=== PATIENT | female | born 1965 | race Caucasian/White ===

== ENCOUNTER 2023-12-20 08:56 | Inpatient (IN) | payer OTHER ==
[2023-12-20] MEDS ORDERED: ACETAMINOPHEN INJECTION 100 ML IVPB ONE (11:22)
[2023-12-20] MEDS ORDERED: ALBUTEROL SO4 2.5/IPRATROPIUM 0.5 INH SOL 3 ML VIAL.NEB. NEB ONE (11:22)
[2023-12-20 11:25] LABS: VENOUS O2 SATURATION 41.7 % (70-80); VENOUS PCO2 53.7 mmHg (38-52); VENOUS PH 7.405 (7.310-7.410)
[2023-12-20 11:26] LABS: BASO % 0.6 % (0-2.0); HEMATOCRIT 51.2 % (32.4-45.2); HEMOGLOBIN 17.9 GM/dL (10.7-15.3); LYMPH % 11.8 % (8-40); MCH 34.4 pg (25.7-33.7); MEAN CELL VOLUME 98.1 fl (80-96); MEAN PLT VOLUME 9.3 fl (7.5-11.1); MONO % 4.3 % (3.8-10.2); NEUT % 83.3 % (42.8-82.8); PLATELET COUNT 300 10^3/uL (134-434); RBC 5.22 M/mm3 (3.60-5.2); RDW 15.2 % (11.6-15.6); WHITE BLOOD COUNT 13.3 K/mm3 (4.0-10.0)
[2023-12-20 11:33] LABS: INR 0.98 (0.83-1.09); PROTHROMBIN TIME (PATIENT) 11.1 SEC (9.7-13.0)
[2023-12-20] MEDS: ALBUTEROL SO4 2.5/IPRATROPIUM 0.5 INH SOL 3 ML VIAL.NEB. NEB ONE (11:35)
[2023-12-20] MEDS: ACETAMINOPHEN 1000 MG/100 ML BAG IVPB ONE (11:35)
[2023-12-20] MEDS ORDERED: PIPERACILLIN/TAZOB 4.5 GM 4.5 GM/100 ML BAG IVPB ONE (11:53)
[2023-12-20] MEDS ORDERED: VANCOMYCIN 1 GRAM (PRE-DOCKED) 1,000 MG/250 ML BAG IVPB ONE (11:53)
[2023-12-20 11:56] LABS: POTASSIUM 4.3 mmol/L (3.5-5.1)
[2023-12-20 11:58] LABS: CALCIUM 9.2 mg/dL (8.5-10.1)
[2023-12-20 11:59] LABS: ALBUMIN 3.1 g/dl (3.4-5.0); BLOOD UREA NITROGEN 32.3 mg/dL (7-18)
[2023-12-20 12:04] LABS: BILIRUBIN,TOTAL 0.4 mg/dL (0.2-1)
[2023-12-20] MEDS: PIPERACILLIN/TAZOB 4.5 GM 4.5 GM in DEXTROSE 5%-WATER 100 ML IVPB ONE (12:20)
[2023-12-20 12:26] LABS: URINE APPEARANCE CLEAR; URINE BILIRUBIN NEGATIVE (NEGATIVE); URINE COLOR YELLOW; URINE GLUCOSE (UA) NEGATIVE (NEGATIVE); URINE KETONE NEGATIVE (NEGATIVE); URINE LEUK ESTERASE NEGATIVE (NEGATIVE); URINE NITRITE NEGATIVE (NEGATIVE); URINE PROTEIN NEGATIVE (NEGATIVE); URINE UROBILINOGEN 0.2 mg/dL (0.2-1.0)
[2023-12-20] MEDS ORDERED: AZITHROMYCIN IVPB 500 MG/250 ML BAG IVPB ONE (12:39)
[2023-12-20] MEDS ORDERED: LACTATED RINGERS SOLUTION 1,000 ML/1,000 ML INFUS.BAG IV SCH (12:45)
[2023-12-20] MEDS: AZITHROMYCIN IVPB 500 MG in DEXTROSE 5%-WATER - 250 ML IVPB ONE (12:49)
[2023-12-20] MEDS: VANCOMYCIN 1,000 MG in DEXTROSE 5%-WATER - 250 ML IVPB ONE (14:18)
[2023-12-20] MEDS: ALBUTEROL SO4 2.5/IPRATROPIUM 0.5 INH SOL 3 ML VIAL.NEB. NEB SCH (16:00)
[2023-12-20] MEDS: LACTATED RINGERS SOLUTION 1,000 ML/1,000 ML INFUS.BAG IV SCH ×2 (16:22→18:14)
[2023-12-20] MEDS: PIPERACILLIN/TAZOB 3.375 GM 3.375 GM in DEXTROSE 5%-WATER - 50 ML IVPB SCH (18:14)
[2023-12-20] MEDS: SENNOSIDES 8.8 MG/5 ML SYRUP GT SCH (22:00)
[2023-12-20] MEDS: levETIRAcetam 500 MG/5 ML ORAL SOLUTION (UNIT-DOSE CUPS) GT SCH (22:00)
[2023-12-20] MEDS: ATORVASTATIN CA 10 MG TABLET (FP) GT SCH (22:00)
[2023-12-20] MEDS: HEPARIN NA (PORCINE) 5,000 UNITS/ML 1ML VIAL SQ SCH (22:00)
[2023-12-20] MEDS: carBAMazepine 100 MG/5 ML UNIT-DOSE CUP GT SCH (23:00)
[2023-12-21] MEDS: PIPERACILLIN/TAZOB 3.375 GM 3.375 GM in DEXTROSE 5%-WATER - 50 ML IVPB SCH (02:37)
[2023-12-21] MEDS: LEVOTHYROXINE 75 MCG, LEVOTHYROXINE 100 MCG GT SCH (06:05)
[2023-12-21] MEDS ORDERED: PATIENT'S OWN MEDICATION (NON-FORMULARY) (Levothyroxine Sodium [Levothyroxine Sodium] 175 GT SCH (07:00)
[2023-12-21 09:17] LABS: BASO % 0.2 % (0-2.0); HEMOGLOBIN 14.2 GM/dL (10.7-15.3); LYMPH % 17.2 % (8-40); MCH 34.4 pg (25.7-33.7); MCHC 34.8 g/dl (32.0-36.0); MEAN CELL VOLUME 98.9 fl (80-96); MEAN PLT VOLUME 8.8 fl (7.5-11.1); MONO % 4.8 % (3.8-10.2); NEUT % 77.8 % (42.8-82.8); PLATELET COUNT 238 10^3/uL (134-434); RBC 4.14 M/mm3 (3.60-5.2); RDW 14.6 % (11.6-15.6); WHITE BLOOD COUNT 11.9 K/mm3 (4.0-10.0)
[2023-12-21 09:35] LABS: POTASSIUM 3.8 mmol/L (3.5-5.1)
[2023-12-21 09:42] LABS: BLOOD UREA NITROGEN 20.6 mg/dL (7-18); CALCIUM 8.2 mg/dL (8.5-10.1)
[2023-12-21 09:46] LABS: CREATININE 0.9 mg/dL (0.55-1.3)
[2023-12-21] MEDS: ASPIRIN 81 MG CHEWABLE TABLETS GT SCH (10:07)
[2023-12-21] MEDS: CALCIUM 500MG/VIT-D 200 UNITS COMBO TABLET (FP) PO SCH (10:07)
[2023-12-21] MEDS: SODIUM CHLORIDE NASAL SPRAY 44 ML BOTTLE NS PRN (10:08)
[2023-12-21] MEDS: ACETAMINOPHEN 650 MG/20.3 ML ORAL SOLUTION (CUPS) GT PRN (21:43)
[2023-12-22] MEDS: FUROSEMIDE 40 MG/4 ML INJECTABLE VIAL IVPUSH ONE (16:32)
[2023-12-23] MEDS: guaiFENesin/D-METHORPHAN HB 10 ML UNIT-DOSE CUPS PO ONE (05:33)
[2023-12-23 08:50] LABS: HEMATOCRIT 40.3 % (32.4-45.2); MCH 34.6 pg (25.7-33.7); MCHC 34.7 g/dl (32.0-36.0); MEAN CELL VOLUME 99.7 fl (80-96); MEAN PLT VOLUME 8.7 fl (7.5-11.1); PLATELET COUNT 260 10^3/uL (134-434); RBC 4.04 M/mm3 (3.60-5.2); RDW 14.6 % (11.6-15.6)
[2023-12-23 09:08] LABS: POTASSIUM 3.7 mmol/L (3.5-5.1)
[2023-12-23 09:10] LABS: CALCIUM 8.1 mg/dL (8.5-10.1)
[2023-12-23 09:15] LABS: BILIRUBIN,TOTAL 0.3 mg/dL (0.2-1); TOT PROT 6.2 g/dl (6.4-8.2)
[2023-12-23 09:28] LABS: ALBUMIN 2.2 g/dl (3.4-5.0)
[2023-12-23 11:12] LABS: N-TERMINAL BNP 274.1 pg/ml (5-125)
[2023-12-23] MEDS: FUROSEMIDE 40 MG/4 ML INJECTABLE VIAL IVPUSH SCH (14:26)
[2023-12-24 09:41] LABS: HEMATOCRIT 43.4 % (32.4-45.2); MCH 34.3 pg (25.7-33.7); MCHC 34.6 g/dl (32.0-36.0); MEAN CELL VOLUME 99.2 fl (80-96); MEAN PLT VOLUME 8.6 fl (7.5-11.1); PLATELET COUNT 265 10^3/uL (134-434); RBC 4.38 M/mm3 (3.60-5.2); RDW 14.7 % (11.6-15.6); WHITE BLOOD COUNT 5.3 K/mm3 (4.0-10.0)
[2023-12-24 09:56] LABS: POTASSIUM 3.7 mmol/L (3.5-5.1)
[2023-12-24 09:59] LABS: ALBUMIN 2.5 g/dl (3.4-5.0); BLOOD UREA NITROGEN 12.6 mg/dL (7-18); CALCIUM 8.7 mg/dL (8.5-10.1)
[2023-12-24 10:05] LABS: BILIRUBIN,TOTAL 0.4 mg/dL (0.2-1); TOT PROT 7.1 g/dl (6.4-8.2)
[2023-12-25 07:49] LABS: HEMATOCRIT 41.2 % (32.4-45.2); HEMOGLOBIN 14.3 GM/dL (10.7-15.3); MCH 34.6 pg (25.7-33.7); MCHC 34.7 g/dl (32.0-36.0); MEAN CELL VOLUME 99.8 fl (80-96); MEAN PLT VOLUME 8.3 fl (7.5-11.1); PLATELET COUNT 282 10^3/uL (134-434); RBC 4.12 M/mm3 (3.60-5.2); RDW 14.6 % (11.6-15.6); WHITE BLOOD COUNT 5.6 K/mm3 (4.0-10.0)
[2023-12-25] MEDS ORDERED: LOPERAMIDE HCL 2 MG CAPSULE PO PRN (08:19)
[2023-12-25 08:31] LABS: POTASSIUM 3.2 mmol/L (3.5-5.1)
[2023-12-25 08:33] LABS: MAGNESIUM 2.6 mg/dL (1.8-2.4)
[2023-12-25 08:35] LABS: CREATININE 1.1 mg/dL (0.55-1.3)
[2023-12-25 08:36] LABS: TOT PROT 6.8 g/dl (6.4-8.2)
[2023-12-25 08:38] LABS: ALBUMIN 2.3 g/dl (3.4-5.0); CALCIUM 8.4 mg/dL (8.5-10.1)
[2023-12-25 08:40] LABS: BLOOD UREA NITROGEN 15.2 mg/dL (7-18); PHOSPHOROUS 3.3 mg/dL (2.5-4.9)
[2023-12-25 08:41] LABS: BILIRUBIN,TOTAL 0.3 mg/dL (0.2-1)
[2023-12-25] MEDS: LOPERAMIDE HCL 1 MG/7.5 ML LIQUID GT PRN (10:16)
[2023-12-25] MEDS: POTASSIUM CHLORIDE ORAL LIQUID 20 MEQ/15 ML GT ONE (12:20)
[2023-12-25 16:04] LABS: MAGNESIUM 2.6 mg/dL (1.8-2.4)
[2023-12-25 16:08] LABS: PHOSPHOROUS 2.8 mg/dL (2.5-4.9)
[2023-12-25 16:37] VITALS: BMI 37.6
[2023-12-25] MEDS: BANATROL PLUS POWDER PACKET PEG SCH (22:20)
[2023-12-26 09:02] LABS: BASO % 0.9 % (0-2.0); HEMATOCRIT 40.5 % (32.4-45.2); HEMOGLOBIN 13.9 GM/dL (10.7-15.3); LYMPH % 31.4 % (8-40); MCH 34.2 pg (25.7-33.7); MCHC 34.2 g/dl (32.0-36.0); MEAN CELL VOLUME 99.9 fl (80-96); MEAN PLT VOLUME 8.5 fl (7.5-11.1); MONO % 8.3 % (3.8-10.2); NEUT % 59.4 % (42.8-82.8); PLATELET COUNT 278 10^3/uL (134-434); RBC 4.05 M/mm3 (3.60-5.2); RDW 14.7 % (11.6-15.6)
[2023-12-26 09:18] LABS: POTASSIUM 3.6 mmol/L (3.5-5.1)
[2023-12-26 09:23] LABS: ALBUMIN 2.2 g/dl (3.4-5.0); BLOOD UREA NITROGEN 17.7 mg/dL (7-18); CALCIUM 8.4 mg/dL (8.5-10.1)
[2023-12-26 09:27] LABS: BILIRUBIN,TOTAL 0.2 mg/dL (0.2-1); TOT PROT 6.6 g/dl (6.4-8.2)
[2023-12-26] MEDS: FUROSEMIDE 40 MG/5 ML UNIT-DOSE CUP GT SCH (09:53)
[2023-12-27] MEDS: FUROSEMIDE 40 MG/4 ML INJECTABLE VIAL IVPUSH SCH (06:20)
[2023-12-27 09:07] LABS: HEMATOCRIT 43.2 % (32.4-45.2); MCH 34.5 pg (25.7-33.7); MCHC 34.7 g/dl (32.0-36.0); MEAN CELL VOLUME 99.5 fl (80-96); MEAN PLT VOLUME 8.5 fl (7.5-11.1); PLATELET COUNT 335 10^3/uL (134-434); RBC 4.34 M/mm3 (3.60-5.2); RDW 14.7 % (11.6-15.6); WHITE BLOOD COUNT 7.9 K/mm3 (4.0-10.0)
[2023-12-27 09:24] LABS: POTASSIUM 3.7 mmol/L (3.5-5.1)
[2023-12-27 09:27] LABS: ALBUMIN 2.5 g/dl (3.4-5.0); BLOOD UREA NITROGEN 23.1 mg/dL (7-18); CALCIUM 8.7 mg/dL (8.5-10.1)
[2023-12-27 09:32] LABS: BILIRUBIN,TOTAL 0.6 mg/dL (0.2-1); TOT PROT 7.3 g/dl (6.4-8.2)
[2023-12-27] MEDS: METOLAZONE 2.5 MG TABLET (FP) PO ONE (16:27)
[2023-12-28 08:23] LABS: HEMATOCRIT 44.4 % (32.4-45.2); HEMOGLOBIN 15.5 GM/dL (10.7-15.3); MCH 34.6 pg (25.7-33.7); MCHC 34.8 g/dl (32.0-36.0); MEAN CELL VOLUME 99.5 fl (80-96); MEAN PLT VOLUME 8.8 fl (7.5-11.1); PLATELET COUNT 334 10^3/uL (134-434); RBC 4.46 M/mm3 (3.60-5.2); RDW 14.9 % (11.6-15.6); WHITE BLOOD COUNT 7.8 K/mm3 (4.0-10.0)
[2023-12-28 08:41] LABS: POTASSIUM 3.1 mmol/L (3.5-5.1)
[2023-12-28 09:01] LABS: CALCIUM 9.2 mg/dL (8.5-10.1)
[2023-12-28 09:02] LABS: BLOOD UREA NITROGEN 25.9 mg/dL (7-18); MAGNESIUM 2.5 mg/dL (1.8-2.4)
[2023-12-28 09:05] LABS: CREATININE 0.9 mg/dL (0.55-1.3); PHOSPHOROUS 3.7 mg/dL (2.5-4.9)
[2023-12-28] MEDS: POTASSIUM CHLORIDE ORAL LIQUID 20 MEQ/15 ML GT ONE ×2 (16:25→21:09)
[2023-12-28 18:36] LABS: POTASSIUM 3.6 mmol/L (3.5-5.1)
[2023-12-28 18:38] LABS: ALBUMIN 2.6 g/dl (3.4-5.0); BLOOD UREA NITROGEN 29.6 mg/dL (7-18); CALCIUM 9.3 mg/dL (8.5-10.1)
[2023-12-28 18:41] LABS: CREATININE 1.1 mg/dL (0.55-1.3)
[2023-12-28 18:43] LABS: BILIRUBIN,TOTAL 0.2 mg/dL (0.2-1); TOT PROT 7.4 g/dl (6.4-8.2)
[2023-12-28 21:42] LABS: POTASSIUM 3.5 mmol/L (3.5-5.1)
[2023-12-28 21:43] LABS: CALCIUM 9.4 mg/dL (8.5-10.1)
[2023-12-28 21:44] LABS: BLOOD UREA NITROGEN 31.7 mg/dL (7-18)
[2023-12-28 21:47] LABS: CREATININE 1.1 mg/dL (0.55-1.3)
[2023-12-28 22:18] LABS: MAGNESIUM 2.4 mg/dL (1.8-2.4)
[2023-12-29 09:33] LABS: HEMATOCRIT 46.4 % (32.4-45.2); HEMOGLOBIN 15.8 GM/dL (10.7-15.3); MCH 34.3 pg (25.7-33.7); MCHC 34.2 g/dl (32.0-36.0); MEAN CELL VOLUME 100.3 fl (80-96); MEAN PLT VOLUME 8.7 fl (7.5-11.1); PLATELET COUNT 340 10^3/uL (134-434); RBC 4.62 M/mm3 (3.60-5.2); RDW 14.9 % (11.6-15.6); WHITE BLOOD COUNT 7.5 K/mm3 (4.0-10.0)
[2023-12-29 09:50] LABS: POTASSIUM 3.5 mmol/L (3.5-5.1)
[2023-12-29 09:55] LABS: CALCIUM 9.5 mg/dL (8.5-10.1)
[2023-12-29 09:56] LABS: BLOOD UREA NITROGEN 36.9 mg/dL (7-18); MAGNESIUM 2.5 mg/dL (1.8-2.4); PHOSPHOROUS 3.2 mg/dL (2.5-4.9)
[2023-12-29 09:57] LABS: ALBUMIN 2.6 g/dl (3.4-5.0); BILIRUBIN,TOTAL 0.3 mg/dL (0.2-1); CREATININE 1.1 mg/dL (0.55-1.3)
[2023-12-29 09:59] LABS: TOT PROT 7.8 g/dl (6.4-8.2)
[2023-12-30] MEDS: SODIUM CHLORIDE 250 ML IV STA (09:20)
[2023-12-30 10:04] VITALS: TEMP 98.7
[2023-12-30 10:05] VITALS: BP 106/62; PULSE 70; RESP 20
== END 2023-12-30 09:57 | disposition home or self-care (01) | DRG 871 ==
LOC: JER 08:56 → JERBED 12:24 → J6S 17:26
PROVIDERS: ADMIT Internal Medicine; ATTEND Internal Medicine
DX: A41.9 Sepsis, unspecified organism (principal); I50.33 Acute on chronic diastolic (congestive) heart failure; J69.0 Pneumonitis due to inhalation of food and vomit; J96.01 Acute respiratory failure with hypoxia; N17.9 Acute kidney failure, unspecified; G40.909 Epilepsy, unspecified, not intractable, without status epilepticus; E03.9 Hypothyroidism, unspecified; E78.5 Hyperlipidemia, unspecified; Q90.9 Down syndrome, unspecified; Z93.1 Gastrostomy status; G30.9 Alzheimer's disease, unspecified; F02.80 Dementia in other diseases classified elsewhere, unspecified severity, without behavioral disturbance, psychotic disturbance, mood disturbance, and anxiety; R19.7 Diarrhea, unspecified
CPT/HCPCS: 0241U-QW; 36415; 71045-TC-FY; 74018-TC-FY; 80048; 80053; 81003; 82803; 82962; 83605; 83735; 83880; 84100; 84484; 85025; 85027; 85610; 86850; 86900; 86901; 87040; 87086; 87186; 87324; 87449; 87899; 93005; 93010; 93306-TC; 94640; 99285-25; J0131; J1644

== ENCOUNTER 2024-06-01 15:23 | Inpatient (IN) | payer OTHER ==
[2024-06-01] MEDS: SODIUM CHLORIDE 1,000 ML IV STA ×2 (16:16→21:43)
[2024-06-01] MEDS: ONDANSETRON 4 MG/2 ML VIAL IVPUSH ONE (16:30)
[2024-06-01] MEDS: PIPERACILLIN/TAZOB 4.5 GM 4.5 GM in DEXTROSE 5%-WATER 100 ML IVPB ONE (16:35)
[2024-06-01 16:41] LABS: BASO % 0.6 % (0-2.0); EOS % 0.1 % (0-4.5); HEMATOCRIT 43.7 % (32.4-45.2); MCH 35.3 pg (25.7-33.7); MCHC 34.2 g/dl (32.0-36.0); MEAN CELL VOLUME 103.2 fl (80-96); MEAN PLT VOLUME 9.1 fl (7.5-11.1); MONO % 4.3 % (3.8-10.2); PLATELET COUNT 264 10^3/uL (134-434); RBC 4.23 M/mm3 (3.60-5.2); RDW 13.9 % (11.6-15.6); WHITE BLOOD COUNT 10.4 K/mm3 (4.0-10.0)
[2024-06-01] MEDS ORDERED: ONDANSETRON 4 MG/2 ML VIAL ONE (16:48)
[2024-06-01] MEDS ORDERED: VANCOMYCIN 1 GRAM (PRE-DOCKED) 1,000 MG/250 ML BAG IVPB ONE (16:50)
[2024-06-01] MEDS ORDERED: PIPERACILLIN/TAZOB 4.5 GM 4.5 GM/100 ML BAG IVPB ONE (16:50)
[2024-06-01] MEDS ORDERED: FAMOTIDINE 20 MG/50 ML IVPB 20 MG/50 ML MG IVPB ONE (16:50)
[2024-06-01] MEDS: FAMOTIDINE 20 MG/50 ML IVPB 20 MG/50 ML MG IVPB ONE (17:05)
[2024-06-01 17:06] LABS: POTASSIUM 5.2 mmol/L (3.5-5.1)
[2024-06-01 17:07] LABS: CALCIUM 10.7 mg/dL (8.5-10.1)
[2024-06-01 17:08] LABS: ALBUMIN 2.9 g/dl (3.4-5.0); BLOOD UREA NITROGEN 38.2 mg/dL (7-18)
[2024-06-01 17:12] LABS: BILIRUBIN,TOTAL 0.5 mg/dL (0.2-1); CREATININE 1.5 mg/dL (0.55-1.3)
[2024-06-01 17:13] LABS: TOT PROT 8.5 g/dl (6.4-8.2)
[2024-06-01] MEDS: VANCOMYCIN 1,000 MG in DEXTROSE 5%-WATER - 250 ML IVPB ONE (17:40)
[2024-06-01] MEDS ORDERED: ACETAMINOPHEN INJECTION 100 ML ONE (18:08)
[2024-06-01] MEDS: ACETAMINOPHEN 1000 MG/100 ML BAG IVPB ONE (18:18)
[2024-06-01 19:11] LABS: POTASSIUM 3.3 mmol/L (3.5-5.1)
[2024-06-01 19:14] LABS: ALBUMIN 2.9 g/dl (3.4-5.0); BLOOD UREA NITROGEN 36.6 mg/dL (7-18); CALCIUM 10.1 mg/dL (8.5-10.1)
[2024-06-01 19:18] LABS: CREATININE 1.6 mg/dL (0.55-1.3)
[2024-06-01 19:19] LABS: BILIRUBIN,TOTAL 0.4 mg/dL (0.2-1); TOT PROT 7.7 g/dl (6.4-8.2)
[2024-06-01 21:05] LABS: EPI CELLS 6 /uL (0-25.1); HYALINE CASTS 2 /uL (0-3.1); URINE APPEARANCE CLOUDY; URINE BACTERIA 1128 /uL (0-1359); URINE BILIRUBIN NEGATIVE (NEGATIVE); URINE COLOR YELLOW; URINE GLUCOSE (UA) NEGATIVE (NEGATIVE); URINE KETONE NEGATIVE (NEGATIVE); URINE LEUK ESTERASE 2+ (NEGATIVE); URINE NITRITE NEGATIVE (NEGATIVE); URINE PROTEIN 2+ (NEGATIVE); URINE RBC 29 /uL (0-23.9); URINE UROBILINOGEN 0.2 mg/dL (0.2-1.0); URINE WBC 476 /uL (0-25.8)
[2024-06-01] MEDS: POTASSIUM CHLORIDE TABS 20 MEQ TABLET.ER (FP) PO ONE (23:30)
[2024-06-01 23:34] LABS: MAGNESIUM 2.1 mg/dL (1.8-2.4)
[2024-06-01] MEDS ORDERED: PATIENT'S OWN MEDICATION (NON-FORMULARY) (Ipratropium/Albuterol Sulfate 1 PUFF Inhaler) IH PRN (23:57)
[2024-06-01] MEDS ORDERED: SODIUM CHLORIDE NASAL SPRAY 44 ML BOTTLE NS PRN (23:57)
[2024-06-02] MEDS ORDERED: POTASSIUM CHLORIDE ORAL LIQUID 20 MEQ/15 ML ONE (00:56)
[2024-06-02] MEDS: POTASSIUM CHLORIDE ORAL LIQUID 20 MEQ/15 ML GT ONE (01:20)
[2024-06-02] MEDS: SODIUM CHLORIDE 1,000 ML IV STA ×3 (01:20→14:30)
[2024-06-02] MEDS: PIPERACILLIN/TAZOB 2.25 GM 2.25 GM/50 ML BAG IVPB SCH ×3 (02:35→21:53)
[2024-06-02] MEDS ORDERED: MAGNESIUM SULFATE IN WATER 2 GM/50 ML IVPB IVPB ONE (02:35)
[2024-06-02] MEDS ORDERED: PIPERACILLIN/TAZOB 2.25 GM 2.25 GM/50 ML BAG IVPB ONE (02:35)
[2024-06-02] MEDS: SODIUM CHLORIDE 1,000 ML IV SCH ×3 (02:51→18:49)
[2024-06-02] MEDS: MAGNESIUM 2GM/50ML STERILE WATER IVPB IVPB ONE (02:51)
[2024-06-02] MEDS ORDERED: VANCOMYCIN 1 GRAM (PRE-DOCKED) 1,000 MG/250 ML BAG IVPB SCH (06:00)
[2024-06-02] MEDS ORDERED: HEPARIN NA (PORCINE) 5,000 UNITS/ML 1ML VIAL SQ SCH ×2 (06:00→22:00)
[2024-06-02] MEDS: HEPARIN NA (PORCINE) 5,000 UNITS/ML 1ML VIAL SQ SCH ×2 (06:08→21:19)
[2024-06-02] MEDS: LEVOTHYROXINE 100 MCG, LEVOTHYROXINE 75 MCG GT SCH (06:20)
[2024-06-02] MEDS ORDERED: PATIENT'S OWN MEDICATION (NON-FORMULARY) (Levothyroxine Sodium [Levothyroxine Sodium] 175 GT SCH (07:00)
[2024-06-02] MEDS: VANCOMYCIN/WATER FOR INJ (PEG) 1,000 MG/200 ML BAG IVPB SCH (07:32)
[2024-06-02 08:14] LABS: HEMATOCRIT 37.5 % (32.4-45.2); HEMOGLOBIN 12.6 GM/dL (10.7-15.3); MCH 35.4 pg (25.7-33.7); MCHC 33.6 g/dl (32.0-36.0); MEAN CELL VOLUME 105.4 fl (80-96); MEAN PLT VOLUME 9.3 fl (7.5-11.1); PLATELET COUNT 203 10^3/uL (134-434); RBC 3.56 M/mm3 (3.60-5.2); RDW 13.8 % (11.6-15.6)
[2024-06-02 08:33] LABS: POTASSIUM 4.6 mmol/L (3.5-5.1)
[2024-06-02 08:37] LABS: ARTERIAL BLD GAS O2 SATURATION 96.8 % (95-98); ARTERIAL BLOOD GAS BASE EXCESS 3.4 mmol/L (-2-2); ARTERIAL BLOOD GAS PO2 91.6 mmHg (80-100); ARTERIAL BLOOD GAS pH 7.386 (7.350-7.450)
[2024-06-02 08:40] LABS: ALLENS TEST POSITIVE
[2024-06-02 08:45] LABS: ALBUMIN 2.4 g/dl (3.4-5.0); BLOOD UREA NITROGEN 29.4 mg/dL (7-18); CALCIUM 8.6 mg/dL (8.5-10.1); MAGNESIUM 2.7 mg/dL (1.8-2.4)
[2024-06-02] MEDS ORDERED: DEXTROSE 5%-LACTATED RINGERS 1,000 ML IV SCH ×2 (08:45→14:46)
[2024-06-02 08:48] LABS: BILIRUBIN,TOTAL 0.3 mg/dL (0.2-1); CREATININE 1.4 mg/dL (0.55-1.3); PHOSPHOROUS 3.2 mg/dL (2.5-4.9)
[2024-06-02 08:50] LABS: TOT PROT 6.6 g/dl (6.4-8.2)
[2024-06-02] MEDS: ALBUTEROL SO4 2.5/IPRATROPIUM 0.5 INH SOL 3 ML VIAL.NEB. NEB SCH ×3 (09:24→20:10)
[2024-06-02] MEDS: levETIRAcetam 500 MG/5 ML ORAL SOLUTION (UNIT-DOSE CUPS) GT SCH ×2 (09:56→21:18)
[2024-06-02] MEDS: CALCIUM 500MG/VIT-D 200 UNITS COMBO TABLET (FP) GT SCH ×2 (09:56→21:53)
[2024-06-02] MEDS: ASPIRIN 81 MG CHEWABLE TABLETS GT SCH (09:56)
[2024-06-02] MEDS: DEXTROSE 5%-LACTATED RINGERS 1,000 ML IV SCH (09:56)
[2024-06-02] MEDS ORDERED: ROSUVASTATIN CA 10 MG TABLET GT SCH (10:00)
[2024-06-02] MEDS ORDERED: MUPIROCIN 2% TOPICAL OINTMENT FOR DECOLONIZATION NS SCH ×2 (10:00→22:00)
[2024-06-02] MEDS ORDERED: carBAMazepine 200 MG TABLET GT SCH (10:00)
[2024-06-02] MEDS: HYDROCORTISONE SOD SUCCINATE 100 MG/2 ML VIAL IVPB SCH ×2 (11:03→21:18)
[2024-06-02] MEDS: MIDODRINE HCL 5 MG TABLET PO SCH (11:48)
[2024-06-02] MEDS: carBAMazepine 200 MG/10 ML UNIT-DOSE CUP GT SCH (13:16)
[2024-06-02] MEDS ORDERED: SODIUM CHLORIDE NASAL SPRAY 44 ML BOTTLE NS PRN ×2 (14:46→18:14)
[2024-06-02] MEDS ORDERED: MIDODRINE HCL 5 MG TABLET GT SCH (15:41)
[2024-06-02] MEDS ORDERED: HYDROCORTISONE SOD SUCCINATE 100 MG/2 ML VIAL IVPB SCH (16:00)
[2024-06-02] MEDS: ATROPINE SULFATE 1 MG/10 ML DISP.SYRIN IVPUSH ONE (17:25)
[2024-06-02 17:28] LABS: ARTERIAL BLD GAS O2 SATURATION 98.9 % (95-98); ARTERIAL BLOOD GAS BASE EXCESS 4.3 mmol/L (-2-2); ARTERIAL BLOOD GAS PO2 146.8 mmHg (80-100); ARTERIAL BLOOD GAS pH 7.432 (7.350-7.450)
[2024-06-02 17:58] LABS: EPI CELLS 2 /uL (0-25.1); HYALINE CASTS 0 /uL (0-3.1); PH,URINE 5.5 (5.0-8.0); URINE APPEARANCE TURBID; URINE BACTERIA 206 /uL (0-1359); URINE BILIRUBIN NEGATIVE (NEGATIVE); URINE COLOR YELLOW; URINE GLUCOSE (UA) NEGATIVE (NEGATIVE); URINE KETONE NEGATIVE (NEGATIVE); URINE LEUK ESTERASE 3+ (NEGATIVE); URINE NITRITE NEGATIVE (NEGATIVE); URINE PROTEIN 1+ (NEGATIVE); URINE RBC 40 /uL (0-23.9); URINE UROBILINOGEN 0.2 mg/dL (0.2-1.0); URINE WBC 2962 /uL (0-25.8)
[2024-06-02 18:24] LABS: BASO % 0.4 % (0-2.0); HEMATOCRIT 40.5 % (32.4-45.2); HEMOGLOBIN 13.7 GM/dL (10.7-15.3); LYMPH % 13.7 % (8-40); MCH 35.4 pg (25.7-33.7); MCHC 33.8 g/dl (32.0-36.0); MEAN CELL VOLUME 104.6 fl (80-96); MEAN PLT VOLUME 9.3 fl (7.5-11.1); MONO % 3.1 % (3.8-10.2); NEUT % 82.8 % (42.8-82.8); PLATELET COUNT 192 10^3/uL (134-434); RBC 3.87 M/mm3 (3.60-5.2); RDW 13.7 % (11.6-15.6); WHITE BLOOD COUNT 5.4 K/mm3 (4.0-10.0)
[2024-06-02] MEDS ORDERED: VANCOMYCIN/WATER FOR INJ (PEG) 1,000 MG/200 ML BAG IVPB SCH (19:00)
[2024-06-02 20:40] LABS: POTASSIUM 4.4 mmol/L (3.5-5.1)
[2024-06-02 20:42] LABS: CALCIUM 8.7 mg/dL (8.5-10.1)
[2024-06-02 20:44] LABS: ALBUMIN 2.5 g/dl (3.4-5.0); BLOOD UREA NITROGEN 23.9 mg/dL (7-18); MAGNESIUM 2.6 mg/dL (1.8-2.4)
[2024-06-02 20:46] LABS: CREATININE 1.3 mg/dL (0.55-1.3); PHOSPHOROUS 2.3 mg/dL (2.5-4.9)
[2024-06-02 20:47] LABS: BILIRUBIN,TOTAL 0.2 mg/dL (0.2-1)
[2024-06-02 20:48] LABS: TOT PROT 7.1 g/dl (6.4-8.2)
[2024-06-02] MEDS: CHLORHEXIDINE GLUCONATE 4% CLEANSER FOR DECOLONIZATION TP SCH (21:19)
[2024-06-02] MEDS: carBAMazepine 100 MG/5 ML UNIT-DOSE CUP GT SCH (21:52)
[2024-06-02] MEDS: MUPIROCIN 2% TOPICAL OINTMENT FOR DECOLONIZATION NS SCH (21:52)
[2024-06-02] MEDS: DOPAMINE 400 MG/D5W - 400,000 MCG/250 ML INFUS.BAG IVPB SCH (21:53)
[2024-06-02] MEDS ORDERED: CHLORHEXIDINE GLUCONATE 4% CLEANSER FOR DECOLONIZATION TP SCH ×2 (22:00)
[2024-06-02] MEDS ORDERED: levETIRAcetam 500 MG/5 ML ORAL SOLUTION (UNIT-DOSE CUPS) GT SCH (22:00)
[2024-06-02] MEDS ORDERED: carBAMazepine 200 MG/10 ML UNIT-DOSE CUP GT SCH (22:00)
[2024-06-02] MEDS ORDERED: CALCIUM 500MG/VIT-D 200 UNITS COMBO TABLET (FP) GT SCH (22:00)
[2024-06-03] MEDS ORDERED: PIPERACILLIN/TAZOB 2.25 GM 2.25 GM/50 ML BAG IVPB SCH ×3 (03:00)
[2024-06-03] MEDS ORDERED: VANCOMYCIN 1 GRAM (PRE-DOCKED) 1,000 MG/250 ML BAG IVPB SCH ×2 (06:00)
[2024-06-03] MEDS: LEVOTHYROXINE 100 MCG, LEVOTHYROXINE 75 MCG GT SCH (06:01)
[2024-06-03] MEDS ORDERED: LEVOTHYROXINE 100 MCG, LEVOTHYROXINE 75 MCG GT SCH (07:00)
[2024-06-03 07:42] LABS: BASO % 1.2 % (0-2.0); HEMATOCRIT 36.2 % (32.4-45.2); HEMOGLOBIN 12.2 GM/dL (10.7-15.3); MCH 35.5 pg (25.7-33.7); MCHC 33.7 g/dl (32.0-36.0); MEAN CELL VOLUME 105.3 fl (80-96); MEAN PLT VOLUME 9.3 fl (7.5-11.1); MONO % 7.7 % (3.8-10.2); NEUT % 64.1 % (42.8-82.8); PLATELET COUNT 186 10^3/uL (134-434); RBC 3.43 M/mm3 (3.60-5.2); RDW 13.4 % (11.6-15.6); WHITE BLOOD COUNT 4.8 K/mm3 (4.0-10.0)
[2024-06-03 07:57] LABS: POTASSIUM 3.8 mmol/L (3.5-5.1)
[2024-06-03 08:06] LABS: ALBUMIN 2.2 g/dl (3.4-5.0); BLOOD UREA NITROGEN 20.6 mg/dL (7-18); CALCIUM 7.9 mg/dL (8.5-10.1)
[2024-06-03 08:07] LABS: BILIRUBIN,TOTAL 0.2 mg/dL (0.2-1); MAGNESIUM 2.4 mg/dL (1.8-2.4); TOT PROT 6.2 g/dl (6.4-8.2)
[2024-06-03 08:09] LABS: CREATININE 1.2 mg/dL (0.55-1.3); PHOSPHOROUS 2.2 mg/dL (2.5-4.9)
[2024-06-03 08:38] LABS: ANISOCYTOSIS 1+; MACROCYTOSIS 2+
[2024-06-03] MEDS: ASPIRIN 81 MG CHEWABLE TABLETS GT SCH (09:58)
[2024-06-03] MEDS ORDERED: MIDODRINE HCL 5 MG TABLET GT SCH (10:00)
[2024-06-03] MEDS ORDERED: ASPIRIN 81 MG CHEWABLE TABLETS GT SCH (10:00)
[2024-06-03] MEDS: LACTATED RINGERS SOLUTION 1,000 ML/1,000 ML INFUS.BAG IV STA (14:53)
[2024-06-03] MEDS: LACTATED RINGERS SOLUTION 1000 ML INFUS.BAG IV ONE (14:53)
[2024-06-03] MEDS: MIDODRINE HCL 5 MG TABLET GT SCH ×2 (14:54→21:40)
[2024-06-03] MEDS: PIPERACILLIN/TAZOB 3.375 GM 50 ML IVPB SCH (17:37)
[2024-06-03] MEDS ORDERED: SODIUM CHLORIDE NASAL SPRAY 44 ML BOTTLE NS PRN (19:15)
[2024-06-03] MEDS: ALBUTEROL SO4 2.5/IPRATROPIUM 0.5 INH SOL 3 ML VIAL.NEB. NEB SCH (20:35)
[2024-06-03] MEDS: NAPH,MB-DB/K PH,MBDB POWDER PACKET PO ONE (21:38)
[2024-06-03] MEDS: MUPIROCIN 2% TOPICAL OINTMENT FOR DECOLONIZATION NS SCH (21:38)
[2024-06-03] MEDS: HYDROCORTISONE SOD SUCCINATE 100 MG/2 ML VIAL IVPB SCH (21:39)
[2024-06-03] MEDS: HEPARIN NA (PORCINE) 5,000 UNITS/ML 1ML VIAL SQ SCH (21:39)
[2024-06-03] MEDS: levETIRAcetam 500 MG/5 ML ORAL SOLUTION (UNIT-DOSE CUPS) GT SCH (21:39)
[2024-06-03] MEDS: CHLORHEXIDINE GLUCONATE 4% CLEANSER FOR DECOLONIZATION TP SCH (21:39)
[2024-06-03] MEDS: carBAMazepine 100 MG/5 ML UNIT-DOSE CUP GT SCH (21:40)
[2024-06-03] MEDS: CALCIUM 500MG/VIT-D 200 UNITS COMBO TABLET (FP) GT SCH (21:40)
[2024-06-04] MEDS: LEVOTHYROXINE 100 MCG, LEVOTHYROXINE 75 MCG GT SCH (06:07)
[2024-06-04 07:48] LABS: HEMATOCRIT 36.3 % (32.4-45.2); HEMOGLOBIN 12.3 GM/dL (10.7-15.3); MCH 35.4 pg (25.7-33.7); MCHC 33.8 g/dl (32.0-36.0); MEAN CELL VOLUME 104.7 fl (80-96); MEAN PLT VOLUME 9.6 fl (7.5-11.1); PLATELET COUNT 196 10^3/uL (134-434); RBC 3.47 M/mm3 (3.60-5.2); RDW 13.4 % (11.6-15.6); WHITE BLOOD COUNT 5.9 K/mm3 (4.0-10.0)
[2024-06-04 07:58] LABS: POTASSIUM 3.7 mmol/L (3.5-5.1)
[2024-06-04 08:06] LABS: ALBUMIN 2.2 g/dl (3.4-5.0); BLOOD UREA NITROGEN 20.4 mg/dL (7-18); CALCIUM 8.7 mg/dL (8.5-10.1); MAGNESIUM 2.7 mg/dL (1.8-2.4)
[2024-06-04 08:09] LABS: CREATININE 1.1 mg/dL (0.55-1.3)
[2024-06-04 08:10] LABS: PHOSPHOROUS 1.6 mg/dL (2.5-4.9)
[2024-06-04 08:11] LABS: BILIRUBIN,TOTAL 0.2 mg/dL (0.2-1); TOT PROT 6.8 g/dl (6.4-8.2)
[2024-06-04] MEDS: ASPIRIN 81 MG CHEWABLE TABLETS GT SCH (10:46)
[2024-06-04] MEDS: NAPH,MB-DB/K PH,MBDB POWDER PACKET PEG SCH (10:49)
[2024-06-04] MEDS: MEROPENEM-0.9% SODIUM CHLORIDE 1 GM/50 ML BAG IVPB SCH (17:28)
[2024-06-05 06:56] LABS: BASO % 0.8 % (0-2.0); HEMATOCRIT 37.4 % (32.4-45.2); HEMOGLOBIN 12.5 GM/dL (10.7-15.3); LYMPH % 36.4 % (8-40); MCH 34.8 pg (25.7-33.7); MCHC 33.5 g/dl (32.0-36.0); MEAN CELL VOLUME 103.8 fl (80-96); MEAN PLT VOLUME 9.8 fl (7.5-11.1); MONO % 8.2 % (3.8-10.2); NEUT % 54.6 % (42.8-82.8); PLATELET COUNT 203 10^3/uL (134-434); RBC 3.61 M/mm3 (3.60-5.2); RDW 13.3 % (11.6-15.6); WHITE BLOOD COUNT 4.9 K/mm3 (4.0-10.0)
[2024-06-05 07:15] LABS: POTASSIUM 3.7 mmol/L (3.5-5.1)
[2024-06-05 07:19] LABS: ALBUMIN 2.3 g/dl (3.4-5.0); CALCIUM 8.2 mg/dL (8.5-10.1); MAGNESIUM 2.5 mg/dL (1.8-2.4)
[2024-06-05 07:24] LABS: BILIRUBIN,TOTAL 0.2 mg/dL (0.2-1)
[2024-06-05 07:27] LABS: TOT PROT 6.4 g/dl (6.4-8.2)
[2024-06-05 07:28] LABS: BLOOD UREA NITROGEN 19.7 mg/dL (7-18)
[2024-06-05 08:36] VITALS: BMI 36.1
[2024-06-05] MEDS: SODIUM CHLORIDE 0.45% 1,000 ML IV SCH (09:58)
[2024-06-06 07:27] LABS: HEMATOCRIT 37.9 % (32.4-45.2); HEMOGLOBIN 12.5 GM/dL (10.7-15.3); MCH 34.5 pg (25.7-33.7); MCHC 33.1 g/dl (32.0-36.0); MEAN CELL VOLUME 104.1 fl (80-96); MEAN PLT VOLUME 9.9 fl (7.5-11.1); PLATELET COUNT 224 10^3/uL (134-434); RBC 3.64 M/mm3 (3.60-5.2); RDW 13.5 % (11.6-15.6); WHITE BLOOD COUNT 6.1 K/mm3 (4.0-10.0)
[2024-06-06 07:29] LABS: POTASSIUM 3.8 mmol/L (3.5-5.1)
[2024-06-06 07:31] LABS: BLOOD UREA NITROGEN 22.4 mg/dL (7-18); CALCIUM 8.3 mg/dL (8.5-10.1)
[2024-06-06 07:32] LABS: ALBUMIN 2.3 g/dl (3.4-5.0); MAGNESIUM 2.7 mg/dL (1.8-2.4)
[2024-06-06 07:35] LABS: PHOSPHOROUS 1.7 mg/dL (2.5-4.9)
[2024-06-06 07:36] LABS: BILIRUBIN,TOTAL 0.2 mg/dL (0.2-1); TOT PROT 6.4 g/dl (6.4-8.2)
[2024-06-06 10:20] LABS: ANISOCYTOSIS 0; MACROCYTOSIS 0
[2024-06-06] MEDS: POLYETHYLENE GLYCOL (HEALTHYLAX) 3350 17 GM PACKET GT SCH (11:43)
[2024-06-06] MEDS: ACETAMINOPHEN 1000 MG/100 ML BAG IVPB ONE (12:30)
[2024-06-06] MEDS: MIDODRINE HCL 5 MG TABLET GT SCH (15:00)
[2024-06-06] MEDS: POTASSIUM PHOSPHATE 30 MM in DEXTROSE 5%-WATER - 500 ML IVPB ONE (16:56)
[2024-06-06] MEDS: DEXTROSE 5%-WATER - 1,000 ML IV SCH (17:40)
[2024-06-06] MEDS: carBAMazepine 100 MG/5 ML UNIT-DOSE CUP GT SCH (21:52)
[2024-06-07 07:13] LABS: HEMATOCRIT 38.9 % (32.4-45.2); HEMOGLOBIN 12.8 GM/dL (10.7-15.3); MCH 34.6 pg (25.7-33.7); MCHC 32.9 g/dl (32.0-36.0); MEAN CELL VOLUME 105.1 fl (80-96); MEAN PLT VOLUME 9.1 fl (7.5-11.1); PLATELET COUNT 221 10^3/uL (134-434); RDW 13.5 % (11.6-15.6); WHITE BLOOD COUNT 8.5 K/mm3 (4.0-10.0)
[2024-06-07 08:26] LABS: POTASSIUM 3.6 mmol/L (3.5-5.1)
[2024-06-07 08:30] LABS: ALBUMIN 2.2 g/dl (3.4-5.0); BLOOD UREA NITROGEN 20.6 mg/dL (7-18); MAGNESIUM 2.5 mg/dL (1.8-2.4)
[2024-06-07 08:34] LABS: CREATININE 0.8 mg/dL (0.55-1.3); PHOSPHOROUS 1.7 mg/dL (2.5-4.9)
[2024-06-07 08:35] LABS: BILIRUBIN,TOTAL 0.2 mg/dL (0.2-1)
[2024-06-07 08:48] LABS: TOT PROT 5.8 g/dl (6.4-8.2)
[2024-06-07] MEDS: DEXTROSE 5%-WATER - 1,000 ML IV SCH (13:34)
[2024-06-07] MEDS: POTASSIUM PHOSPHATE 45 MM in DEXTROSE 5%-WATER - 500 ML IVPB ONE (16:27)
[2024-06-08 07:54] LABS: HEMATOCRIT 39.7 % (32.4-45.2); HEMOGLOBIN 13.1 GM/dL (10.7-15.3); MCH 34.8 pg (25.7-33.7); MCHC 33.1 g/dl (32.0-36.0); MEAN CELL VOLUME 105.1 fl (80-96); MEAN PLT VOLUME 9.4 fl (7.5-11.1); PLATELET COUNT 234 10^3/uL (134-434); RBC 3.77 M/mm3 (3.60-5.2); RDW 13.6 % (11.6-15.6); WHITE BLOOD COUNT 8.7 K/mm3 (4.0-10.0)
[2024-06-08 08:31] LABS: POTASSIUM 4.2 mmol/L (3.5-5.1)
[2024-06-08 08:35] LABS: CALCIUM 7.4 mg/dL (8.5-10.1)
[2024-06-08 08:36] LABS: ALBUMIN 2.2 g/dl (3.4-5.0); BLOOD UREA NITROGEN 16.1 mg/dL (7-18); MAGNESIUM 2.2 mg/dL (1.8-2.4)
[2024-06-08 08:39] LABS: CREATININE 0.8 mg/dL (0.55-1.3); PHOSPHOROUS 2.8 mg/dL (2.5-4.9)
[2024-06-08 08:40] LABS: BILIRUBIN,TOTAL 0.2 mg/dL (0.2-1); TOT PROT 5.8 g/dl (6.4-8.2)
[2024-06-08] MEDS: MIDODRINE HCL 5 MG TABLET GT SCH (13:10)
[2024-06-08] MEDS: FLUCONAZOLE 40 MG/ML SUSPENSION NGT SCH (18:48)
[2024-06-08] MEDS: HYDROCORTISONE SOD SUCCINATE 100 MG/2 ML VIAL IVPB SCH (21:55)
[2024-06-09 07:16] LABS: HEMATOCRIT 40.2 % (32.4-45.2); HEMOGLOBIN 13.4 GM/dL (10.7-15.3); MCHC 33.3 g/dl (32.0-36.0); MEAN PLT VOLUME 9.7 fl (7.5-11.1); PLATELET COUNT 247 10^3/uL (134-434); RBC 3.82 M/mm3 (3.60-5.2); RDW 13.5 % (11.6-15.6); WHITE BLOOD COUNT 10.2 K/mm3 (4.0-10.0)
[2024-06-09 07:36] LABS: POTASSIUM 4.8 mmol/L (3.5-5.1)
[2024-06-09 07:39] LABS: CALCIUM 7.9 mg/dL (8.5-10.1)
[2024-06-09 07:40] LABS: BLOOD UREA NITROGEN 21.9 mg/dL (7-18); MAGNESIUM 2.3 mg/dL (1.8-2.4)
[2024-06-09 07:43] LABS: CREATININE 0.8 mg/dL (0.55-1.3); PHOSPHOROUS 2.2 mg/dL (2.5-4.9)
[2024-06-09 07:44] LABS: BILIRUBIN,TOTAL 0.3 mg/dL (0.2-1); TOT PROT 5.6 g/dl (6.4-8.2)
[2024-06-09] MEDS: SODIUM PHOSPHATE - 30 MM in DEXTROSE 5%-WATER - 250 ML IVPB ONE (17:46)
[2024-06-10] MEDS ORDERED: SIMETHICONE 40 MG/0.6 ML BOTTLE GT PRN (00:05)
[2024-06-10] MEDS: ALBUTEROL SO4 2.5/IPRATROPIUM 0.5 INH SOL 3 ML VIAL.NEB. NEB PRN (00:16)
[2024-06-10] MEDS: ZINC OXIDE 20% TOPICAL OINTMENT 30 GM TUBE TP SCH (01:04)
[2024-06-10 07:42] LABS: HEMATOCRIT 40.6 % (32.4-45.2); HEMOGLOBIN 13.5 GM/dL (10.7-15.3); MCH 34.5 pg (25.7-33.7); MCHC 33.1 g/dl (32.0-36.0); MEAN CELL VOLUME 104.1 fl (80-96); MEAN PLT VOLUME 9.9 fl (7.5-11.1); PLATELET COUNT 256 10^3/uL (134-434); RDW 13.9 % (11.6-15.6); WHITE BLOOD COUNT 9.8 K/mm3 (4.0-10.0)
[2024-06-10 07:56] LABS: POTASSIUM 4.1 mmol/L (3.5-5.1)
[2024-06-10 08:00] LABS: CALCIUM 8.2 mg/dL (8.5-10.1)
[2024-06-10 08:01] LABS: BLOOD UREA NITROGEN 19.9 mg/dL (7-18); MAGNESIUM 2.4 mg/dL (1.8-2.4)
[2024-06-10 08:04] LABS: CREATININE 0.6 mg/dL (0.55-1.3); PHOSPHOROUS 2.4 mg/dL (2.5-4.9)
[2024-06-10 08:05] LABS: BILIRUBIN,TOTAL 0.2 mg/dL (0.2-1); TOT PROT 5.4 g/dl (6.4-8.2)
[2024-06-10] MEDS: POTASSIUM PHOSPHATE 30 MM in DEXTROSE 5%-WATER - 500 ML IVPB ONE (18:41)
[2024-06-10] MEDS: HYDROCORTISONE SOD SUCCINATE 100 MG/2 ML VIAL IVPB SCH (21:53)
[2024-06-11 09:21] LABS: HEMATOCRIT 40.4 % (32.4-45.2); HEMOGLOBIN 13.6 GM/dL (10.7-15.3); MCH 35.4 pg (25.7-33.7); MCHC 33.6 g/dl (32.0-36.0); MEAN CELL VOLUME 105.3 fl (80-96); MEAN PLT VOLUME 9.7 fl (7.5-11.1); PLATELET COUNT 242 10^3/uL (134-434); RBC 3.84 M/mm3 (3.60-5.2); RDW 13.8 % (11.6-15.6); WHITE BLOOD COUNT 9.6 K/mm3 (4.0-10.0)
[2024-06-11 09:26] LABS: POTASSIUM 4.3 mmol/L (3.5-5.1)
[2024-06-11 09:42] LABS: ALBUMIN 2.1 g/dl (3.4-5.0); CALCIUM 8.4 mg/dL (8.5-10.1)
[2024-06-11 09:43] LABS: BLOOD UREA NITROGEN 17.2 mg/dL (7-18); MAGNESIUM 2.5 mg/dL (1.8-2.4)
[2024-06-11 09:45] LABS: CREATININE 0.6 mg/dL (0.55-1.3); PHOSPHOROUS 2.9 mg/dL (2.5-4.9)
[2024-06-11 09:47] LABS: BILIRUBIN,TOTAL 0.3 mg/dL (0.2-1); TOT PROT 5.7 g/dl (6.4-8.2)
[2024-06-11] MEDS: NAPH,MB-DB/K PH,MBDB POWDER PACKET GT SCH (09:52)
[2024-06-11] MEDS: MEROPENEM-0.9% SODIUM CHLORIDE 1 GM/50 ML BAG IVPB SCH (21:35)
[2024-06-12 08:26] LABS: POTASSIUM 4.4 mmol/L (3.5-5.1)
[2024-06-12 08:28] LABS: ALBUMIN 2.2 g/dl (3.4-5.0); BLOOD UREA NITROGEN 14.9 mg/dL (7-18); CALCIUM 7.6 mg/dL (8.5-10.1); MAGNESIUM 2.4 mg/dL (1.8-2.4)
[2024-06-12 08:31] LABS: CREATININE 0.7 mg/dL (0.55-1.3)
[2024-06-12 08:32] LABS: PHOSPHOROUS 1.8 mg/dL (2.5-4.9)
[2024-06-12 08:33] LABS: BILIRUBIN,TOTAL 0.4 mg/dL (0.2-1); TOT PROT 5.9 g/dl (6.4-8.2)
[2024-06-12] MEDS: HYDROCORTISONE SOD SUCCINATE 100 MG/2 ML VIAL IVPB SCH (10:44)
[2024-06-12] MEDS: ENOXAPARIN NA (PORCINE) 40 MG/0.4 ML DISP.SYRIN SQ SCH (10:44)
[2024-06-12 11:55] LABS: BASO % 0.6 % (0-2.0); HEMATOCRIT 39.8 % (32.4-45.2); HEMOGLOBIN 13.3 GM/dL (10.7-15.3); LYMPH % 26.2 % (8-40); MCH 35.1 pg (25.7-33.7); MCHC 33.4 g/dl (32.0-36.0); MEAN CELL VOLUME 105.1 fl (80-96); MEAN PLT VOLUME 9.8 fl (7.5-11.1); MONO % 6.8 % (3.8-10.2); NEUT % 66.4 % (42.8-82.8); PLATELET COUNT 210 10^3/uL (134-434); RBC 3.78 M/mm3 (3.60-5.2); RDW 14.1 % (11.6-15.6); WHITE BLOOD COUNT 9.6 K/mm3 (4.0-10.0)
[2024-06-12] MEDS: TUBE FEED DECLOGGING SOLUTION 12,000 UNITS GT ONE (12:10)
[2024-06-12] MEDS: POTASSIUM PHOSPHATE 30 MM in SODIUM CHLORIDE 500 ML IVPB ONE (12:11)
[2024-06-12 12:13] LABS: ANISOCYTOSIS 2+; MACROCYTOSIS 2+
[2024-06-13 11:08] VITALS: TEMP 98.1
[2024-06-13] MEDS: POTASSIUM PHOSPHATE 30 MM in DEXTROSE 5%-WATER - 500 ML IVPB ONE (11:16)
[2024-06-13 15:39] VITALS: BP 122/71; PULSE 60; RESP 18
== END 2024-06-13 17:50 | disposition home or self-care (01) | DRG 871 ==
LOC: JER 15:23 → JERBED 19:14 → J6S 06-02 03:12 → J4W 06-02 14:22 → JICU 06-02 17:05 → J2W 06-03 23:35 → J4W 06-10 08:15
PROVIDERS: ADMIT Internal Medicine; ATTEND Internal Medicine
DX: A41.9 Sepsis, unspecified organism (principal); I50.33 Acute on chronic diastolic (congestive) heart failure; J69.0 Pneumonitis due to inhalation of food and vomit; J96.21 Acute and chronic respiratory failure with hypoxia; R65.21 Severe sepsis with septic shock; R53.2 Functional quadriplegia; N39.0 Urinary tract infection, site not specified; E87.0 Hyperosmolality and hypernatremia; N17.9 Acute kidney failure, unspecified; B37.0 Candidal stomatitis; Q90.9 Down syndrome, unspecified; G40.909 Epilepsy, unspecified, not intractable, without status epilepticus; E03.9 Hypothyroidism, unspecified; E78.5 Hyperlipidemia, unspecified; F79 Unspecified intellectual disabilities; E87.6 Hypokalemia; R00.1 Bradycardia, unspecified; I95.89 Other hypotension; E83.39 Other disorders of phosphorus metabolism; Z93.1 Gastrostomy status; B96.20 Unspecified Escherichia coli [E. coli] as the cause of diseases classified elsewhere
CPT/HCPCS: 0241U-QW; 36415; 36600; 71045-TC-FY; 76705-TC; 80053; 81003; 82550; 82607; 82746; 82803; 82962; 83605; 83735; 84100; 84439; 84443; 85025; 85027; 87040; 87086; 87186; 87481; 87635; 93005; 93010; 93306-TC; 94640; 94761; 99285-25; J0131; J1644

== ENCOUNTER 2024-06-27 11:36 | Inpatient (IN) | payer OTHER ==
[2024-06-27] MEDS ORDERED: ALBUTEROL SO4 2.5/IPRATROPIUM 0.5 INH SOL 3 ML VIAL.NEB. NEB ONE (12:48)
[2024-06-27] MEDS ORDERED: ACETAMINOPHEN INJECTION 100 ML ONE (12:48)
[2024-06-27] MEDS: ALBUTEROL SO4 2.5/IPRATROPIUM 0.5 INH SOL 3 ML VIAL.NEB. NEB ONE (12:56)
[2024-06-27 13:10] LABS: VENOUS BASE EXCESS 13.1 mmol/L (-2-2); VENOUS O2 SATURATION 55.4 % (70-80); VENOUS PCO2 62.9 mmHg (38-52); VENOUS PH 7.43 (7.310-7.410)
[2024-06-27] MEDS: ACETAMINOPHEN 1000 MG/100 ML BAG IVPB ONE (13:10)
[2024-06-27 13:13] LABS: HEMATOCRIT 43.2 % (32.4-45.2); HEMOGLOBIN 14.5 GM/dL (10.7-15.3); MCH 34.6 pg (25.7-33.7); MCHC 33.5 g/dl (32.0-36.0); MEAN CELL VOLUME 103.6 fl (80-96); MEAN PLT VOLUME 8.7 fl (7.5-11.1); PLATELET COUNT 263 10^3/uL (134-434); RBC 4.17 M/mm3 (3.60-5.2); RDW 14.5 % (11.6-15.6); WHITE BLOOD COUNT 7.7 K/mm3 (4.0-10.0)
[2024-06-27 13:20] LABS: INR 0.94 (0.83-1.09); PROTHROMBIN TIME (PATIENT) 10.8 SEC (9.7-13.0)
[2024-06-27 13:23] LABS: ACTIVATED PTT 29.8 SECONDS (25.2-36.5)
[2024-06-27 13:24] LABS: POTASSIUM 3.9 mmol/L (3.5-5.1)
[2024-06-27 13:26] LABS: CALCIUM 12.3 mg/dL (8.5-10.1)
[2024-06-27 13:27] LABS: ALBUMIN 2.9 g/dl (3.4-5.0); BLOOD UREA NITROGEN 52.7 mg/dL (7-18)
[2024-06-27 13:30] LABS: CREATININE 2.3 mg/dL (0.55-1.3)
[2024-06-27 13:31] LABS: BILIRUBIN,TOTAL 0.4 mg/dL (0.2-1); TOT PROT 7.7 g/dl (6.4-8.2)
[2024-06-27] MEDS ORDERED: PIPERACILLIN/TAZOB 4.5 GM 4.5 GM/100 ML BAG IVPB ONE (13:53)
[2024-06-27] MEDS: PIPERACILLIN/TAZOB 4.5 GM 4.5 GM in DEXTROSE 5%-WATER 100 ML IVPB ONE (14:14)
[2024-06-27 14:32] LABS: ANISOCYTOSIS 1+; MACROCYTOSIS 1+
[2024-06-27 14:33] LABS: PLATELET ESTIMATE ADEQUATE
[2024-06-27] MEDS: SODIUM CHLORIDE 0.9% 500 ML INFUS.BAG IV ONE (14:39)
[2024-06-27] MEDS: VANCOMYCIN 1,000 MG in DEXTROSE 5%-WATER - 250 ML IVPB ONE (15:44)
[2024-06-27] MEDS: LACTATED RINGERS SOLUTION 1,000 ML/1,000 ML INFUS.BAG IV SCH ×3 (17:02→22:25)
[2024-06-27] MEDS: PIPERACILLIN/TAZOB 2.25 GM 2.25 GM/50 ML BAG IVPB SCH (18:19)
[2024-06-27] MEDS: SENNOSIDES 8.8 MG/5 ML SYRUP GT SCH (22:12)
[2024-06-27] MEDS: levETIRAcetam 500 MG/5 ML ORAL SOLUTION (UNIT-DOSE CUPS) GT SCH (22:12)
[2024-06-27] MEDS: HEPARIN NA (PORCINE) 5,000 UNITS/ML 1ML VIAL SQ SCH (22:12)
[2024-06-27] MEDS: carBAMazepine 100 MG/5 ML UNIT-DOSE CUP GT SCH (22:12)
[2024-06-27] MEDS: MIDODRINE HCL 5 MG TABLET GT SCH (22:13)
[2024-06-28] MEDS: LEVOTHYROXINE 100 MCG, LEVOTHYROXINE 75 MCG GT SCH (06:13)
[2024-06-28] MEDS ORDERED: PATIENT'S OWN MEDICATION (NON-FORMULARY) (Levothyroxine Sodium [Levothyroxine Sodium] 175 GT SCH (07:00)
[2024-06-28 08:55] LABS: HEMATOCRIT 36.9 % (32.4-45.2); HEMOGLOBIN 12.4 GM/dL (10.7-15.3); MCH 34.9 pg (25.7-33.7); MCHC 33.7 g/dl (32.0-36.0); MEAN CELL VOLUME 103.3 fl (80-96); MEAN PLT VOLUME 9.3 fl (7.5-11.1); PLATELET COUNT 221 10^3/uL (134-434); RBC 3.57 M/mm3 (3.60-5.2); RDW 14.4 % (11.6-15.6); WHITE BLOOD COUNT 6.5 K/mm3 (4.0-10.0)
[2024-06-28 09:11] LABS: POTASSIUM 3.5 mmol/L (3.5-5.1)
[2024-06-28 09:12] LABS: BLOOD UREA NITROGEN 55.5 mg/dL (7-18); CALCIUM 11.1 mg/dL (8.5-10.1)
[2024-06-28 09:16] LABS: CREATININE 2.4 mg/dL (0.55-1.3)
[2024-06-28] MEDS: MIDODRINE HCL 5 MG TABLET GT SCH (09:29)
[2024-06-28] MEDS: ROSUVASTATIN CA 10 MG TABLET GT SCH (09:29)
[2024-06-28] MEDS: ASPIRIN 81 MG CHEWABLE TABLETS GT SCH (09:29)
[2024-06-28 10:24] LABS: ANISOCYTOSIS 0; MACROCYTOSIS 1+
[2024-06-28] MEDS: FUROSEMIDE 40 MG/4 ML INJECTABLE VIAL IVPUSH ONE (16:53)
[2024-06-28] MEDS: ALBUTEROL SO4 2.5/IPRATROPIUM 0.5 INH SOL 3 ML VIAL.NEB. NEB PRN (16:56)
[2024-06-28] MEDS: ACETAMINOPHEN 1000 MG/100 ML BAG IVPB PRN (16:57)
[2024-06-28] MEDS: methylPREDNISolone NA SUCC 40 MG/1 ML VIAL IVPUSH ONE (17:22)
[2024-06-29] MEDS: methylPREDNISolone NA SUCC 40 MG/1 ML VIAL IVPUSH SCH (01:36)
[2024-06-29 09:27] LABS: POTASSIUM 3.6 mmol/L (3.5-5.1)
[2024-06-29 09:34] LABS: ALBUMIN 2.5 g/dl (3.4-5.0); BLOOD UREA NITROGEN 43.7 mg/dL (7-18); CALCIUM 10.3 mg/dL (8.5-10.1); MAGNESIUM 2.7 mg/dL (1.8-2.4)
[2024-06-29 09:36] LABS: HEMATOCRIT 37.8 % (32.4-45.2); HEMOGLOBIN 12.9 GM/dL (10.7-15.3); MCH 34.9 pg (25.7-33.7); MEAN CELL VOLUME 102.5 fl (80-96); MEAN PLT VOLUME 9.4 fl (7.5-11.1); PLATELET COUNT 245 10^3/uL (134-434); RBC 3.69 M/mm3 (3.60-5.2); RDW 14.5 % (11.6-15.6); WHITE BLOOD COUNT 8.3 K/mm3 (4.0-10.0)
[2024-06-29 09:38] LABS: CREATININE 2.1 mg/dL (0.55-1.3)
[2024-06-29 09:39] LABS: BILIRUBIN,TOTAL 0.2 mg/dL (0.2-1); TOT PROT 7.2 g/dl (6.4-8.2)
[2024-06-29 10:42] LABS: ANISOCYTOSIS 0; MACROCYTOSIS 0
[2024-06-29] MEDS: ALBUTEROL SO4 2.5/IPRATROPIUM 0.5 INH SOL 3 ML VIAL.NEB. NEB SCH (11:30)
[2024-06-29] MEDS: SCOPOLAMINE HYDROBROMIDE 1 PATCH PATCH.TD72 TD SCH (11:54)
[2024-06-29 13:40] LABS: ARTERIAL BLD GAS O2 SATURATION 94.9 % (95-98); ARTERIAL BLOOD GAS BASE EXCESS 10.1 mmol/L (-2-2); ARTERIAL BLOOD GAS pH 7.418 (7.350-7.450)
[2024-06-29 13:41] LABS: ALLENS TEST POSITIVE
[2024-06-29] MEDS: BISACODYL 10 MG SUPP.RECT PR ONE (14:09)
[2024-06-29] MEDS: MINERAL OIL/PET HY-PHL TOPICAL OINTMENT 454 GM JAR TP SCH (21:57)
[2024-06-29] MEDS: POLYETHYLENE GLYCOL (HEALTHYLAX) 3350 17 GM PACKET GT SCH (21:59)
[2024-06-30 09:32] LABS: HEMATOCRIT 37.8 % (32.4-45.2); HEMOGLOBIN 12.6 GM/dL (10.7-15.3); MCHC 33.4 g/dl (32.0-36.0); MEAN CELL VOLUME 104.6 fl (80-96); MEAN PLT VOLUME 9.7 fl (7.5-11.1); PLATELET COUNT 250 10^3/uL (134-434); RBC 3.61 M/mm3 (3.60-5.2); RDW 14.3 % (11.6-15.6); WHITE BLOOD COUNT 8.6 K/mm3 (4.0-10.0)
[2024-06-30 10:04] LABS: ANISOCYTOSIS 0; MACROCYTOSIS 0
[2024-06-30 11:35] LABS: POTASSIUM 3.3 mmol/L (3.5-5.1)
[2024-06-30 11:45] LABS: ALBUMIN 2.7 g/dl (3.4-5.0); BLOOD UREA NITROGEN 42.2 mg/dL (7-18); CALCIUM 10.1 mg/dL (8.5-10.1); MAGNESIUM 2.7 mg/dL (1.8-2.4)
[2024-06-30 11:49] LABS: CREATININE 1.7 mg/dL (0.55-1.3)
[2024-06-30 11:50] LABS: BILIRUBIN,TOTAL 0.2 mg/dL (0.2-1); TOT PROT 7.4 g/dl (6.4-8.2)
[2024-06-30] MEDS: POTASSIUM CHLORIDE ORAL LIQUID 20 MEQ/15 ML GT ONE (12:36)
[2024-06-30] MEDS: FUROSEMIDE 40 MG/5 ML UNIT-DOSE CUP GT SCH (12:46)
[2024-06-30] MEDS: MINERAL OIL ENEMA 133 ML ENEMA RC ONE (13:02)
[2024-06-30] MEDS: BISACODYL 10 MG SUPP.RECT PR ONE (15:52)
[2024-07-01] MEDS: FUROSEMIDE 40 MG/5 ML UNIT-DOSE CUP GT SCH (10:29)
[2024-07-01 12:51] LABS: HEMATOCRIT 38.4 % (32.4-45.2); MCH 35.1 pg (25.7-33.7); MEAN CELL VOLUME 103.3 fl (80-96); MEAN PLT VOLUME 9.7 fl (7.5-11.1); PLATELET COUNT 257 10^3/uL (134-434); RBC 3.72 M/mm3 (3.60-5.2); RDW 14.5 % (11.6-15.6); WHITE BLOOD COUNT 8.6 K/mm3 (4.0-10.0)
[2024-07-01 13:10] LABS: POTASSIUM 3.6 mmol/L (3.5-5.1)
[2024-07-01 13:12] LABS: CALCIUM 9.4 mg/dL (8.5-10.1)
[2024-07-01 13:13] LABS: ALBUMIN 2.7 g/dl (3.4-5.0); MAGNESIUM 2.7 mg/dL (1.8-2.4)
[2024-07-01 13:16] LABS: CREATININE 1.4 mg/dL (0.55-1.3)
[2024-07-01 13:17] LABS: BILIRUBIN,TOTAL 0.2 mg/dL (0.2-1)
[2024-07-01 13:18] LABS: TOT PROT 7.2 g/dl (6.4-8.2)
[2024-07-01 13:57] LABS: ANISOCYTOSIS 0; MACROCYTOSIS 1+
[2024-07-01 15:25] VITALS: BMI 36.6
[2024-07-02] MEDS: ALBUTEROL SO4 2.5/IPRATROPIUM 0.5 INH SOL 3 ML VIAL.NEB. NEB PRN (17:03)
[2024-07-02] MEDS: methylPREDNISolone NA SUCC 40 MG/1 ML VIAL IVPUSH SCH (22:27)
[2024-07-03 09:49] LABS: HEMOGLOBIN 13.1 GM/dL (10.7-15.3); MCH 35.5 pg (25.7-33.7); MCHC 34.4 g/dl (32.0-36.0); MEAN CELL VOLUME 103.3 fl (80-96); MEAN PLT VOLUME 9.6 fl (7.5-11.1); PLATELET COUNT 256 10^3/uL (134-434); RBC 3.68 M/mm3 (3.60-5.2); RDW 14.5 % (11.6-15.6); WHITE BLOOD COUNT 9.7 K/mm3 (4.0-10.0)
[2024-07-03 10:03] LABS: POTASSIUM 3.7 mmol/L (3.5-5.1)
[2024-07-03 10:06] LABS: ALBUMIN 2.8 g/dl (3.4-5.0); BLOOD UREA NITROGEN 44.1 mg/dL (7-18)
[2024-07-03 10:09] LABS: CREATININE 1.2 mg/dL (0.55-1.3)
[2024-07-03 10:10] LABS: BILIRUBIN,TOTAL 0.2 mg/dL (0.2-1); MAGNESIUM 2.5 mg/dL (1.8-2.4); TOT PROT 7.2 g/dl (6.4-8.2)
[2024-07-03 11:38] LABS: ANISOCYTOSIS 0; MACROCYTOSIS 1+
[2024-07-03] MEDS: ALBUTEROL SO4 2.5/IPRATROPIUM 0.5 INH SOL 3 ML VIAL.NEB. NEB SCH (20:11)
[2024-07-04] MEDS: ALBUTEROL SO4 2.5/IPRATROPIUM 0.5 INH SOL 3 ML VIAL.NEB. NEB SCH (07:50)
[2024-07-04] MEDS: methylPREDNISolone NA SUCC 40 MG/1 ML VIAL IVPUSH SCH ×2 (09:33→13:20)
[2024-07-04] MEDS ORDERED: FUROSEMIDE 40 MG/5 ML UNIT-DOSE CUP GT SCH (13:06)
[2024-07-04] MEDS: ALBUTEROL SO4 2.5/IPRATROPIUM 0.5 INH SOL 3 ML VIAL.NEB. NEB ONE (13:13)
[2024-07-04] MEDS: FUROSEMIDE 40 MG/4 ML INJECTABLE VIAL IVPUSH ONE (13:20)
[2024-07-05] MEDS: ACETAMINOPHEN 650 MG/20.3 ML ORAL SOLUTION (CUPS) PO ONE (00:02)
[2024-07-05] MEDS: ALBUTEROL SO4 2.5/IPRATROPIUM 0.5 INH SOL 3 ML VIAL.NEB. NEB ONE (02:16)
[2024-07-05 09:35] LABS: HEMOGLOBIN 14.2 GM/dL (10.7-15.3); MCH 34.9 pg (25.7-33.7); MCHC 33.8 g/dl (32.0-36.0); MEAN CELL VOLUME 103.1 fl (80-96); MEAN PLT VOLUME 9.2 fl (7.5-11.1); PLATELET COUNT 293 10^3/uL (134-434); RBC 4.07 M/mm3 (3.60-5.2); RDW 15.2 % (11.6-15.6); WHITE BLOOD COUNT 11.4 K/mm3 (4.0-10.0)
[2024-07-05] MEDS: FUROSEMIDE 40 MG/5 ML UNIT-DOSE CUP GT SCH (09:39)
[2024-07-05 09:49] LABS: POTASSIUM 3.5 mmol/L (3.5-5.1)
[2024-07-05 09:56] LABS: ALBUMIN 2.8 g/dl (3.4-5.0); BLOOD UREA NITROGEN 35.3 mg/dL (7-18); CALCIUM 8.8 mg/dL (8.5-10.1); MAGNESIUM 2.5 mg/dL (1.8-2.4)
[2024-07-05 09:58] LABS: CREATININE 1.1 mg/dL (0.55-1.3)
[2024-07-05 10:00] LABS: BILIRUBIN,TOTAL 0.2 mg/dL (0.2-1); TOT PROT 7.5 g/dl (6.4-8.2)
[2024-07-05 10:55] LABS: ANISOCYTOSIS 0; MACROCYTOSIS 1+
[2024-07-05] MEDS: FUROSEMIDE 40 MG/4 ML INJECTABLE VIAL IVPUSH ONE (16:50)
[2024-07-05] MEDS: MAGNESIUM HYDROX 2400MG/30ML ORAL SUSPENSION 30 ML CUP PO PRN (16:50)
[2024-07-06] MEDS ORDERED: POLYETHYLENE GLYCOL (HEALTHYLAX) 3350 17 GM PACKET GT ONE (07:45)
[2024-07-06 08:38] LABS: POTASSIUM 3.5 mmol/L (3.5-5.1)
[2024-07-06 08:43] LABS: ALBUMIN 2.9 g/dl (3.4-5.0); BLOOD UREA NITROGEN 43.5 mg/dL (7-18); CALCIUM 8.7 mg/dL (8.5-10.1)
[2024-07-06 08:45] LABS: CREATININE 1.2 mg/dL (0.55-1.3); HEMOGLOBIN 14.9 GM/dL (10.7-15.3); MAGNESIUM 2.7 mg/dL (1.8-2.4); MCH 35.2 pg (25.7-33.7); MCHC 33.8 g/dl (32.0-36.0); MEAN CELL VOLUME 104.3 fl (80-96); MEAN PLT VOLUME 9.5 fl (7.5-11.1); PLATELET COUNT 285 10^3/uL (134-434); RBC 4.22 M/mm3 (3.60-5.2); RDW 15.5 % (11.6-15.6); WHITE BLOOD COUNT 10.1 K/mm3 (4.0-10.0)
[2024-07-06 08:47] LABS: BILIRUBIN,TOTAL 0.3 mg/dL (0.2-1); TOT PROT 7.5 g/dl (6.4-8.2)
[2024-07-06] MEDS: methylPREDNISolone NA SUCC 40 MG/1 ML VIAL IVPUSH SCH (09:48)
[2024-07-06] MEDS ORDERED: ACETAMINOPHEN 1000 MG/100 ML BAG IVPB PRN (09:57)
[2024-07-06] MEDS: POLYETHYLENE GLYCOL (HEALTHYLAX) 3350 17 GM PACKET GT ONE (10:44)
[2024-07-06 10:45] LABS: ANISOCYTOSIS 0; MACROCYTOSIS 1+
[2024-07-06] MEDS ORDERED: FUROSEMIDE 40 MG/4 ML INJECTABLE VIAL IVPUSH ONE (11:00)
[2024-07-06] MEDS: FUROSEMIDE 40 MG/4 ML INJECTABLE VIAL IVPUSH ONE (12:12)
[2024-07-06] MEDS ORDERED: FUROSEMIDE 20 MG TABLET (FP) PO SCH ×2 (18:00)
[2024-07-06] MEDS: FUROSEMIDE 40 MG/5 ML UNIT-DOSE CUP GT SCH (18:54)
[2024-07-06] MEDS: POLYETHYLENE GLYCOL (HEALTHYLAX) 3350 17 GM PACKET GT SCH (22:13)
[2024-07-07 10:22] LABS: BASO % 0.6 % (0-2.0); HEMOGLOBIN 14.5 GM/dL (10.7-15.3); LYMPH % 22.1 % (8-40); MCH 34.9 pg (25.7-33.7); MCHC 33.6 g/dl (32.0-36.0); MEAN CELL VOLUME 103.8 fl (80-96); NEUT % 70.3 % (42.8-82.8); PLATELET COUNT 261 10^3/uL (134-434); RBC 4.14 M/mm3 (3.60-5.2); RDW 15.2 % (11.6-15.6); WHITE BLOOD COUNT 12.1 K/mm3 (4.0-10.0)
[2024-07-07 10:48] LABS: CHLORIDE 92 mmol/L (98-107); SODIUM 136 mmol/L (136-145)
[2024-07-07 10:50] LABS: CALCIUM 8.8 mg/dL (8.5-10.1)
[2024-07-07 10:51] LABS: ALBUMIN 2.8 g/dl (3.4-5.0); BLOOD UREA NITROGEN 40.3 mg/dL (7-18); CO2 37 mmol/L (21-32); GLUCOSE,RANDOM 153 mg/dL (74-106); MAGNESIUM 2.7 mg/dL (1.8-2.4)
[2024-07-07 10:54] LABS: SGOT/AST 22 U/L (15-37); SGPT/ALT 37 U/L (13-61)
[2024-07-07 10:56] LABS: BILIRUBIN,TOTAL 0.3 mg/dL (0.2-1); TOT PROT 7.3 g/dl (6.4-8.2)
[2024-07-07 10:57] LABS: ALK PHOS 89 U/L (45-117)
[2024-07-07 11:02] LABS: ANION GAP 7 mmol/L (4-13); POTASSIUM 2.9 mmol/L (3.5-5.1)
[2024-07-07] MEDS ORDERED: KCL 10 MEQ IVPB 10 MEQ/100 ML INFUS.BAG IVPB SCH (12:30)
[2024-07-07] MEDS: POTASSIUM CHLORIDE ORAL LIQUID 20 MEQ/15 ML GT SCH (12:38)
[2024-07-07] MEDS: AMOX TR/POTASSIUM CLAVULANATE 600 MG/5 ML GT SCH (17:39)
[2024-07-08 08:48] LABS: BASO % 0.8 % (0-2.0); HEMATOCRIT 42.2 % (32.4-45.2); HEMOGLOBIN 14.4 GM/dL (10.7-15.3); LYMPH % 27.5 % (8-40); MCH 35.1 pg (25.7-33.7); MCHC 34.2 g/dl (32.0-36.0); MEAN CELL VOLUME 102.7 fl (80-96); MEAN PLT VOLUME 9.2 fl (7.5-11.1); MONO % 5.4 % (3.8-10.2); NEUT % 66.3 % (42.8-82.8); PLATELET COUNT 263 10^3/uL (134-434); RBC 4.11 M/mm3 (3.60-5.2); RDW 15.1 % (11.6-15.6); WHITE BLOOD COUNT 12.8 K/mm3 (4.0-10.0)
[2024-07-08] MEDS: predniSONE 20 MG TABLET (UD) GT SCH (09:18)
[2024-07-08 09:28] LABS: ALBUMIN 2.8 g/dl (3.4-5.0); BLOOD UREA NITROGEN 34.6 mg/dL (7-18); CALCIUM 8.8 mg/dL (8.5-10.1)
[2024-07-08 09:29] LABS: MAGNESIUM 2.7 mg/dL (1.8-2.4)
[2024-07-08 09:31] LABS: CREATININE 0.9 mg/dL (0.55-1.3)
[2024-07-08 09:33] LABS: BILIRUBIN,TOTAL 0.3 mg/dL (0.2-1)
[2024-07-08] MEDS: PIPERACILLIN/TAZOB 3.375 GM 50 ML IVPB ONE (12:30)
[2024-07-08 12:31] LABS: ARTERIAL BLD GAS O2 SATURATION 97.5 % (95-98); ARTERIAL BLOOD GAS PO2 90.4 mmHg (80-100)
[2024-07-08 12:32] LABS: ALLENS TEST POSITIVE
[2024-07-08] MEDS: PIPERACILLIN/TAZOB 3.375 GM 50 ML IVPB SCH (18:19)
[2024-07-09 09:23] LABS: HEMATOCRIT 39.9 % (32.4-45.2); HEMOGLOBIN 13.7 GM/dL (10.7-15.3); MCH 35.7 pg (25.7-33.7); MCHC 34.4 g/dl (32.0-36.0); MEAN CELL VOLUME 103.7 fl (80-96); MEAN PLT VOLUME 9.5 fl (7.5-11.1); PLATELET COUNT 260 10^3/uL (134-434); RBC 3.85 M/mm3 (3.60-5.2); RDW 15.5 % (11.6-15.6); WHITE BLOOD COUNT 11.7 K/mm3 (4.0-10.0)
[2024-07-09 09:39] LABS: POTASSIUM 3.6 mmol/L (3.5-5.1)
[2024-07-09 09:47] LABS: CALCIUM 9.2 mg/dL (8.5-10.1)
[2024-07-09 09:48] LABS: ALBUMIN 2.8 g/dl (3.4-5.0); BLOOD UREA NITROGEN 34.5 mg/dL (7-18)
[2024-07-09 09:52] LABS: BILIRUBIN,TOTAL 0.3 mg/dL (0.2-1)
[2024-07-09 10:11] LABS: ANISOCYTOSIS 0; HELMET CELLS 0; HOWELL-JOLLY BODIES 0; MACROCYTOSIS 0; OVALOCYTE 0; ROULEAU 0; SICKELED CELLS 0; TARGET CELLS 0; TEAR DROP CELLS 0; TOXIC GRANULATION 0
[2024-07-09] MEDS: FUROSEMIDE 40 MG/4 ML INJECTABLE VIAL IVPB ONE (18:13)
[2024-07-10 09:15] LABS: HEMOGLOBIN 13.3 GM/dL (10.7-15.3); MCH 34.7 pg (25.7-33.7); MCHC 33.1 g/dl (32.0-36.0); MEAN CELL VOLUME 104.7 fl (80-96); MEAN PLT VOLUME 9.2 fl (7.5-11.1); PLATELET COUNT 254 10^3/uL (134-434); RBC 3.82 M/mm3 (3.60-5.2); RDW 15.5 % (11.6-15.6); WHITE BLOOD COUNT 11.7 K/mm3 (4.0-10.0)
[2024-07-10 09:32] LABS: ALBUMIN 2.8 g/dl (3.4-5.0); BLOOD UREA NITROGEN 31.6 mg/dL (7-18)
[2024-07-10 09:36] LABS: BILIRUBIN,TOTAL 0.4 mg/dL (0.2-1); TOT PROT 6.9 g/dl (6.4-8.2)
[2024-07-10] MEDS: predniSONE 20 MG TABLET (UD) GT SCH (11:24)
[2024-07-10] MEDS: POTASSIUM CHLORIDE TABS 20 MEQ TABLET.ER (FP) PO ONE (17:21)
[2024-07-10] MEDS: POTASSIUM CHLORIDE ORAL LIQUID 20 MEQ/15 ML PEG ONE (17:42)
[2024-07-10] MEDS: KCL 10 MEQ IVPB 10 MEQ/100 ML INFUS.BAG IVPB SCH (17:42)
[2024-07-10] MEDS: POTASSIUM PHOSPHATE 15 MM in SODIUM CHLORIDE 250 ML IVPB ONE (17:55)
[2024-07-11 06:34] VITALS: RESP 18
[2024-07-11 08:39] LABS: HEMATOCRIT 39.2 % (32.4-45.2); HEMOGLOBIN 12.9 GM/dL (10.7-15.3); MCH 34.4 pg (25.7-33.7); MCHC 32.8 g/dl (32.0-36.0); MEAN CELL VOLUME 105.1 fl (80-96); MEAN PLT VOLUME 9.1 fl (7.5-11.1); PLATELET COUNT 252 10^3/uL (134-434); RBC 3.73 M/mm3 (3.60-5.2); RDW 15.4 % (11.6-15.6); WHITE BLOOD COUNT 11.7 K/mm3 (4.0-10.0)
[2024-07-11 09:04] LABS: POTASSIUM 3.6 mmol/L (3.5-5.1)
[2024-07-11 09:11] LABS: ALBUMIN 2.7 g/dl (3.4-5.0); BLOOD UREA NITROGEN 28.4 mg/dL (7-18); CALCIUM 9.1 mg/dL (8.5-10.1); MAGNESIUM 2.6 mg/dL (1.8-2.4)
[2024-07-11 09:15] LABS: PHOSPHOROUS 2.5 mg/dL (2.5-4.9)
[2024-07-11 09:16] LABS: BILIRUBIN,TOTAL 0.4 mg/dL (0.2-1); TOT PROT 6.7 g/dl (6.4-8.2)
[2024-07-11] MEDS: predniSONE 10 MG TABLET (UD) GT ONE (10:01)
[2024-07-11 11:04] VITALS: BP 115/66; PULSE 67; TEMP 97.5
== END 2024-07-11 13:09 | disposition home or self-care (01) | DRG 177 ==
LOC: JER 11:36 → JERBED 14:01 → J8W 15:39
PROVIDERS: ADMIT Internal Medicine
DX: J69.0 Pneumonitis due to inhalation of food and vomit (principal); I50.33 Acute on chronic diastolic (congestive) heart failure; J96.01 Acute respiratory failure with hypoxia; R53.2 Functional quadriplegia; N17.9 Acute kidney failure, unspecified; G40.909 Epilepsy, unspecified, not intractable, without status epilepticus; E03.9 Hypothyroidism, unspecified; E78.5 Hyperlipidemia, unspecified; Q90.9 Down syndrome, unspecified; Z93.1 Gastrostomy status; E87.6 Hypokalemia; E83.52 Hypercalcemia
CPT/HCPCS: 0241U-QW; 36415; 36600; 71045-TC-FY; 74018-TC-FY; 76775-TC; 80048; 80053; 82803; 83036; 83735; 83880; 84100; 84484; 85025; 85027; 85610; 85730; 86850; 86900; 86901; 87635; 93005; 93010; 94640; 99285-25; J0131; J1644

== ENCOUNTER 2024-08-19 16:01 | Inpatient (IN) | payer OTHER ==
[2024-08-19] MEDS ORDERED: LEVALBUTEROL HCL 0.31 MG/3 ML VIAL.NEB IH PRN (23:24)
[2024-08-20] MEDS ORDERED: carBAMazepine 200 MG TABLET GT SCH ×2 (01:05→10:00)
[2024-08-20] MEDS ORDERED: levETIRAcetam 500 MG/5 ML ORAL SOLUTION (UNIT-DOSE CUPS) GT SCH ×2 (01:05→10:00)
[2024-08-20] MEDS: FUROSEMIDE 40 MG/4 ML INJECTABLE VIAL IVPUSH ONE (01:14)
[2024-08-20] MEDS: carBAMazepine 200 MG TABLET PO ONE (01:54)
[2024-08-20] MEDS: levETIRAcetam 500 MG TABLET (FP) PO ONE ×2 (01:55→15:37)
[2024-08-20 05:50] LABS: EPI CELLS 14 /uL (0-25.1); HYALINE CASTS 0 /uL (0-3.1); PH,URINE 6.5 (5.0-8.0); URINE APPEARANCE CLEAR; URINE BACTERIA 3 /uL (0-1359); URINE BILIRUBIN NEGATIVE (NEGATIVE); URINE COLOR YELLOW; URINE GLUCOSE (UA) NEGATIVE (NEGATIVE); URINE KETONE NEGATIVE (NEGATIVE); URINE LEUK ESTERASE NEGATIVE (NEGATIVE); URINE NITRITE NEGATIVE (NEGATIVE); URINE PROTEIN 1+ (NEGATIVE); URINE RBC 21 /uL (0-23.9); URINE UROBILINOGEN 0.2 mg/dL (0.2-1.0); URINE WBC 32 /uL (0-25.8)
[2024-08-20] MEDS ORDERED: levoFLOXacin 750 MG TABLET GT SCH (06:00)
[2024-08-20] MEDS: FUROSEMIDE 40 MG/5 ML UNIT-DOSE CUP GT SCH (06:10)
[2024-08-20] MEDS: LEVOTHYROXINE NA 75 MCG TABLET (FP) PO SCH (06:13)
[2024-08-20] MEDS ORDERED: LEVOTHYROXINE NA 100 MCG TABLET (FP) GT SCH (07:00)
[2024-08-20] MEDS ORDERED: ALBUTEROL SO4 2.5/IPRATROPIUM 0.5 INH SOL 3 ML VIAL.NEB. NEB SCH (08:00)
[2024-08-20 09:45] LABS: HEMATOCRIT 44.3 % (32.4-45.2); HEMOGLOBIN 14.6 GM/dL (10.7-15.3); MCH 34.8 pg (25.7-33.7); MEAN CELL VOLUME 105.7 fl (80-96); MEAN PLT VOLUME 9.2 fl (7.5-11.1); PLATELET COUNT 351 10^3/uL (134-434); RBC 4.19 M/mm3 (3.60-5.2); WHITE BLOOD COUNT 9.1 K/mm3 (4.0-10.0)
[2024-08-20] MEDS: ASPIRIN 81 MG CHEWABLE TABLETS GT SCH (10:04)
[2024-08-20] MEDS: BUDESONIDE/FORMETEROL FUMARATE 80/4.5 mcg INHALER IH SCH (10:04)
[2024-08-20] MEDS: levETIRAcetam 500 MG/5 ML ORAL SOLUTION (UNIT-DOSE CUPS) GT SCH (10:04)
[2024-08-20] MEDS: predniSONE 10 MG TABLET (UD) GT SCH (10:04)
[2024-08-20 10:05] LABS: POTASSIUM 3.5 mmol/L (3.5-5.1)
[2024-08-20] MEDS: ERTAPENEM SODIUM 1 GM in SODIUM CHLORIDE 50 ML IVPB SCH (10:05)
[2024-08-20] MEDS: ENOXAPARIN NA (PORCINE) 40 MG/0.4 ML DISP.SYRIN SQ SCH (10:05)
[2024-08-20 10:06] LABS: BLOOD UREA NITROGEN 38.9 mg/dL (7-18)
[2024-08-20] MEDS: carBAMazepine 200 MG TABLET GT SCH (10:06)
[2024-08-20 10:08] LABS: ALBUMIN 2.8 g/dl (3.4-5.0)
[2024-08-20 10:10] LABS: CREATININE 0.7 mg/dL (0.55-1.3)
[2024-08-20 10:11] LABS: BILIRUBIN,TOTAL 0.4 mg/dL (0.2-1)
[2024-08-20 10:12] LABS: TOT PROT 7.2 g/dl (6.4-8.2)
[2024-08-20] MEDS: AZITHROMYCIN IVPB 500 MG/250 ML BAG IVPB SCH (10:58)
[2024-08-20] MEDS: D5-1/2NS+10 MEQ KCL - 10 MEQ/1,000 ML INFUS.BAG IV SCH (14:57)
[2024-08-20] MEDS: ATORVASTATIN CA 10 MG TABLET (FP) GT SCH (22:45)
[2024-08-21 08:26] LABS: BASO % 1.1 % (0-2.0); HEMATOCRIT 42.4 % (32.4-45.2); HEMOGLOBIN 14.4 GM/dL (10.7-15.3); LYMPH % 45.6 % (8-40); MCH 35.1 pg (25.7-33.7); MEAN CELL VOLUME 103.4 fl (80-96); MEAN PLT VOLUME 8.9 fl (7.5-11.1); MONO % 7.7 % (3.8-10.2); NEUT % 45.6 % (42.8-82.8); PLATELET COUNT 337 10^3/uL (134-434); RDW 15.8 % (11.6-15.6); WHITE BLOOD COUNT 7.2 K/mm3 (4.0-10.0)
[2024-08-21 08:29] LABS: POTASSIUM 3.7 mmol/L (3.5-5.1)
[2024-08-21 08:41] LABS: CREATININE 0.7 mg/dL (0.55-1.3)
[2024-08-21 11:57] VITALS: BMI 34.7
[2024-08-21 14:44] VITALS: RESP 18
[2024-08-22 10:22] LABS: BASO % 0.8 % (0-2.0); HEMATOCRIT 43.5 % (32.4-45.2); HEMOGLOBIN 14.8 GM/dL (10.7-15.3); LYMPH % 18.7 % (8-40); MCH 35.2 pg (25.7-33.7); MCHC 34.1 g/dl (32.0-36.0); MEAN CELL VOLUME 103.3 fl (80-96); MEAN PLT VOLUME 9.1 fl (7.5-11.1); MONO % 8.3 % (3.8-10.2); NEUT % 72.2 % (42.8-82.8); PLATELET COUNT 334 10^3/uL (134-434); RBC 4.21 M/mm3 (3.60-5.2); RDW 15.7 % (11.6-15.6); WHITE BLOOD COUNT 7.6 K/mm3 (4.0-10.0)
[2024-08-22 10:29] LABS: POTASSIUM 3.4 mmol/L (3.5-5.1)
[2024-08-22 10:31] LABS: BLOOD UREA NITROGEN 27.3 mg/dL (7-18); CALCIUM 8.7 mg/dL (8.5-10.1); MAGNESIUM 2.6 mg/dL (1.8-2.4)
[2024-08-22 10:35] LABS: CREATININE 0.8 mg/dL (0.55-1.3)
[2024-08-22 13:16] VITALS: BP 95/62; PULSE 76; TEMP 98
== END 2024-08-22 13:16 | DRG 189 ==
LOC: JER 16:01 → OBSVTOIN 20:10 → JERBED 20:10 → J8W 08-20 00:14
PROVIDERS: ADMIT Internal Medicine; ATTEND Nurse Practitioner Acute Care
DX: J96.01 Acute respiratory failure with hypoxia (principal); R53.2 Functional quadriplegia; I50.32 Chronic diastolic (congestive) heart failure; E78.5 Hyperlipidemia, unspecified; E03.9 Hypothyroidism, unspecified; Q90.9 Down syndrome, unspecified; G40.909 Epilepsy, unspecified, not intractable, without status epilepticus; G47.33 Obstructive sleep apnea (adult) (pediatric); Z93.1 Gastrostomy status; Z99.81 Dependence on supplemental oxygen
CPT/HCPCS: 0241U-QW; 36415; 71045-TC-FY; 80048; 80053; 81003; 83735; 85025; 85027; 85379; 93005; 93010; 99285-25

== ENCOUNTER 2024-09-04 05:52 | Inpatient (IN) | payer OTHER ==
[2024-09-04] MEDS ORDERED: ACETAMINOPHEN INJECTION 100 ML ONE (06:00)
[2024-09-04] MEDS ORDERED: PIPERACILLIN/TAZOB 4.5 GM 4.5 GM/100 ML BAG IVPB ONE (06:01)
[2024-09-04] MEDS: SODIUM CHLORIDE 1,000 ML IV STA (06:10)
[2024-09-04] MEDS: ACETAMINOPHEN 1000 MG/100 ML BAG IVPB ONE (06:10)
[2024-09-04 06:34] LABS: VENOUS BASE EXCESS 6.4 mmol/L (-2-2); VENOUS O2 SATURATION 49.8 % (70-80); VENOUS PCO2 60.9 mmHg (38-52); VENOUS PH 7.365 (7.310-7.410)
[2024-09-04] MEDS ORDERED: VANCOMYCIN 1 GM PREMIX (F) 1 GM/200 ML BAG ONE (06:40)
[2024-09-04] MEDS: PIPERACILLIN/TAZOB 4.5 GM 4.5 GM in DEXTROSE 5%-WATER 100 ML IVPB ONE (06:40)
[2024-09-04] MEDS: VANCOMYCIN 1,000 MG in DEXTROSE 5%-WATER - 250 ML IVPB ONE (06:50)
[2024-09-04 07:08] LABS: HEMATOCRIT 43.8 % (32.4-45.2); HEMOGLOBIN 14.3 GM/dL (10.7-15.3); MCH 34.2 pg (25.7-33.7); MCHC 32.7 g/dl (32.0-36.0); MEAN CELL VOLUME 104.7 fl (80-96); MEAN PLT VOLUME 9.6 fl (7.5-11.1); PLATELET COUNT 307 10^3/uL (134-434); RBC 4.18 M/mm3 (3.60-5.2); WHITE BLOOD COUNT 14.1 K/mm3 (4.0-10.0)
[2024-09-04 07:09] LABS: LACTIC ACID 4.4 mmol/L (0.4-2.0)
[2024-09-04 07:16] LABS: INR 0.99 (0.83-1.09); PROTHROMBIN TIME (PATIENT) 10.8 SEC (9.7-13.0)
[2024-09-04 07:17] LABS: POTASSIUM 3.5 mmol/L (3.5-5.1)
[2024-09-04 07:18] LABS: ACTIVATED PTT 31.7 SECONDS (25.2-36.5)
[2024-09-04 07:20] LABS: ALBUMIN 3.1 g/dl (3.4-5.0); BLOOD UREA NITROGEN 31.6 mg/dL (7-18)
[2024-09-04 07:23] LABS: CREATININE 1.3 mg/dL (0.55-1.3)
[2024-09-04 07:24] LABS: BILIRUBIN,TOTAL 0.4 mg/dL (0.2-1); TOT PROT 7.4 g/dl (6.4-8.2)
[2024-09-04 07:31] LABS: CALCIUM 10.6 mg/dL (8.5-10.1)
[2024-09-04 08:24] LABS: EPI CELLS 2 /uL (0-25.1); HYALINE CASTS 1 /uL (0-3.1); PH,URINE 8.5 (5.0-8.0); URINE APPEARANCE CLOUDY; URINE BACTERIA >9,000 /uL (0-1359); URINE BILIRUBIN NEGATIVE (NEGATIVE); URINE COLOR YELLOW; URINE GLUCOSE (UA) NEGATIVE (NEGATIVE); URINE KETONE NEGATIVE (NEGATIVE); URINE LEUK ESTERASE 2+ (NEGATIVE); URINE NITRITE NEGATIVE (NEGATIVE); URINE PROTEIN TRACE (NEGATIVE); URINE RBC 11 /uL (0-23.9); URINE UROBILINOGEN 0.2 mg/dL (0.2-1.0); URINE WBC 193 /uL (0-25.8)
[2024-09-04 09:17] LABS: ANISOCYTOSIS 0; MACROCYTOSIS 1+
[2024-09-04] MEDS ORDERED: MAGNESIUM HYDROX 2400MG/30ML ORAL SUSPENSION 30 ML CUP GT PRN (09:17)
[2024-09-04 09:44] LABS: LACTIC ACID 4.6 mmol/L (0.4-2.0)
[2024-09-04] MEDS ORDERED: MEROPENEM 1 GM in DEXTROSE 5%-WATER 100 ML IVPB SCH (10:00)
[2024-09-04] MEDS: FUROSEMIDE 40 MG/5 ML UNIT-DOSE CUP GT SCH (10:01)
[2024-09-04] MEDS: KETOCONAZOLE 2% CREAM - 60GM TUBE TP SCH (10:01)
[2024-09-04] MEDS: carBAMazepine 200 MG/10 ML UNIT-DOSE CUP GT SCH (10:03)
[2024-09-04] MEDS ORDERED: HEPARIN NA (PORCINE) 5,000 UNITS/ML 1ML VIAL ONE (10:07)
[2024-09-04] MEDS ORDERED: levETIRAcetam 500 MG/5 ML ORAL SOLUTION (UNIT-DOSE CUPS) ONE (10:07)
[2024-09-04] MEDS ORDERED: ASPIRIN 81 MG CHEWABLE TABLETS ONE (10:07)
[2024-09-04] MEDS: HEPARIN NA (PORCINE) 5,000 UNITS/ML 1ML VIAL SQ SCH (10:08)
[2024-09-04] MEDS: ASPIRIN 81 MG CHEWABLE TABLETS GT SCH (10:08)
[2024-09-04] MEDS: levETIRAcetam 500 MG/5 ML ORAL SOLUTION (UNIT-DOSE CUPS) GT SCH (10:09)
[2024-09-04] MEDS: MEROPENEM-0.9% SODIUM CHLORIDE 1 GM/50 ML BAG IVPB SCH (10:20)
[2024-09-04] MEDS ORDERED: MEROPENEM-0.9% SODIUM CHLORIDE 1 GM/50 ML BAG IVPB ONE (10:20)
[2024-09-04] MEDS: LACTATED RINGERS SOLUTION 1,000 ML/1,000 ML INFUS.BAG IV SCH (10:20)
[2024-09-04 10:58] LABS: LACTIC ACID 3.1 mmol/L (0.4-2.0)
[2024-09-04] MEDS: ALBUTEROL SO4 2.5/IPRATROPIUM 0.5 INH SOL 3 ML VIAL.NEB. NEB SCH (11:22)
[2024-09-04 12:46] LABS: LACTIC ACID 2.3 mmol/L (0.4-2.0)
[2024-09-04] MEDS: methylPREDNISolone NA SUCC 40 MG/1 ML VIAL IVPUSH SCH (13:42)
[2024-09-04] MEDS ORDERED: PIPERACILLIN/TAZOB 4.5 GM 4.5 GM in DEXTROSE 5%-WATER 100 ML IVPB SCH (14:00)
[2024-09-04 16:51] LABS: LACTIC ACID 2.7 mmol/L (0.4-2.0)
[2024-09-04 19:53] LABS: LACTIC ACID 3.3 mmol/L (0.4-2.0)
[2024-09-04] MEDS: SENNOSIDES 8.8 MG/5 ML SYRUP GT SCH (21:28)
[2024-09-04] MEDS: ATORVASTATIN CA 10 MG TABLET (FP) GT SCH (21:28)
[2024-09-04 22:36] LABS: ARTERIAL BLD GAS O2 SATURATION 97.8 % (95-98); ARTERIAL BLOOD GAS BASE EXCESS 5.4 mmol/L (-2-2); ARTERIAL BLOOD GAS PO2 101.5 mmHg (80-100); ARTERIAL BLOOD GAS pH 7.441 (7.350-7.450)
[2024-09-04 22:40] LABS: ALLENS TEST POSITIVE
[2024-09-04 22:42] LABS: VENT MODE ST; VENT RATE 12
[2024-09-04 22:46] LABS: LACTIC ACID 3.1 mmol/L (0.4-2.0)
[2024-09-04] MEDS: carBAMazepine 100 MG/5 ML UNIT-DOSE CUP GT SCH (22:56)
[2024-09-05] MEDS: ALBUTEROL SO4 0.083% IH SOL 2.5 MG/3 ML VIAL.NEB. NEB PRN (04:01)
[2024-09-05] MEDS: LEVOTHYROXINE NA 75 MCG TABLET (FP) GT SCH (06:25)
[2024-09-05] MEDS ORDERED: SODIUM CHLORIDE 1,000 ML IV SCH (08:15)
[2024-09-05] MEDS: SODIUM CHLORIDE 1,000 ML IV STA (08:53)
[2024-09-05 09:41] LABS: HEMATOCRIT 33.9 % (32.4-45.2); HEMOGLOBIN 11.4 GM/dL (10.7-15.3); MCH 34.8 pg (25.7-33.7); MCHC 33.5 g/dl (32.0-36.0); MEAN CELL VOLUME 103.9 fl (80-96); MEAN PLT VOLUME 9.7 fl (7.5-11.1); PLATELET COUNT 209 10^3/uL (134-434); RBC 3.27 M/mm3 (3.60-5.2); WHITE BLOOD COUNT 10.2 K/mm3 (4.0-10.0)
[2024-09-05 09:52] LABS: POTASSIUM 3.6 mmol/L (3.5-5.1)
[2024-09-05 09:57] LABS: BLOOD UREA NITROGEN 29.2 mg/dL (7-18)
[2024-09-05 10:03] LABS: CALCIUM 9.4 mg/dL (8.5-10.1)
[2024-09-05 12:12] LABS: ANISOCYTOSIS 1+; MACROCYTOSIS 1+
[2024-09-05] MEDS: SODIUM CHLORIDE 1,000 ML IV SCH (14:00)
[2024-09-05] MEDS ORDERED: LEVOTHYROXINE NA 75 MCG TABLET (FP) GT SCH (16:33)
[2024-09-05] MEDS: ROSUVASTATIN CA 10 MG TABLET GT SCH (21:54)
[2024-09-05] MEDS: levETIRAcetam 500 MG/5 ML ORAL SOLUTION (UNIT-DOSE CUPS) GT SCH (22:01)
[2024-09-05] MEDS: carBAMazepine 100 MG/5 ML UNIT-DOSE CUP GT SCH (22:01)
[2024-09-06] MEDS: LEVOTHYROXINE 100 MCG, LEVOTHYROXINE 75 MCG GT SCH (06:10)
[2024-09-06 10:09] LABS: BASO % 0.6 % (0-2.0); HEMATOCRIT 32.4 % (32.4-45.2); HEMOGLOBIN 10.6 GM/dL (10.7-15.3); LYMPH % 36.7 % (8-40); MCH 34.5 pg (25.7-33.7); MCHC 32.7 g/dl (32.0-36.0); MEAN CELL VOLUME 105.4 fl (80-96); MONO % 9.2 % (3.8-10.2); NEUT % 53.5 % (42.8-82.8); PLATELET COUNT 212 10^3/uL (134-434); RBC 3.07 M/mm3 (3.60-5.2); RDW 14.5 % (11.6-15.6); WHITE BLOOD COUNT 6.4 K/mm3 (4.0-10.0)
[2024-09-06 10:35] LABS: POTASSIUM 3.3 mmol/L (3.5-5.1)
[2024-09-06 10:41] LABS: BLOOD UREA NITROGEN 17.6 mg/dL (7-18); CALCIUM 8.1 mg/dL (8.5-10.1)
[2024-09-06 10:43] LABS: ALBUMIN 2.2 g/dl (3.4-5.0)
[2024-09-06 10:45] LABS: CREATININE 0.7 mg/dL (0.55-1.3)
[2024-09-06 10:46] LABS: BILIRUBIN,TOTAL 0.3 mg/dL (0.2-1); TOT PROT 5.9 g/dl (6.4-8.2)
[2024-09-06 11:57] LABS: ANISOCYTOSIS 1+; MACROCYTOSIS 1+
[2024-09-06] MEDS: POTASSIUM CHLORIDE ORAL LIQUID 20 MEQ/15 ML GT ONE (13:35)
[2024-09-06] MEDS: MEROPENEM-0.9% SODIUM CHLORIDE 1 GM/50 ML BAG IVPB SCH (17:29)
[2024-09-07] MEDS ORDERED: LEVOTHYROXINE NA 100 MCG TABLET (FP) ONE (04:57)
[2024-09-07 09:00] LABS: HEMATOCRIT 35.1 % (32.4-45.2); HEMOGLOBIN 11.4 GM/dL (10.7-15.3); MCH 34.2 pg (25.7-33.7); MCHC 32.4 g/dl (32.0-36.0); MEAN CELL VOLUME 105.3 fl (80-96); MEAN PLT VOLUME 9.2 fl (7.5-11.1); PLATELET COUNT 226 10^3/uL (134-434); RBC 3.34 M/mm3 (3.60-5.2); RDW 14.6 % (11.6-15.6); WHITE BLOOD COUNT 7.4 K/mm3 (4.0-10.0)
[2024-09-07 09:26] LABS: POTASSIUM 4.1 mmol/L (3.5-5.1)
[2024-09-07 09:30] LABS: CALCIUM 8.9 mg/dL (8.5-10.1)
[2024-09-07 09:31] LABS: BLOOD UREA NITROGEN 17.8 mg/dL (7-18)
[2024-09-07 09:34] LABS: CREATININE 0.7 mg/dL (0.55-1.3)
[2024-09-07] MEDS: DEXTROSE 5%-0.45% SALINE 1,000 ML IV SCH (18:38)
[2024-09-08 09:17] LABS: HEMATOCRIT 33.8 % (32.4-45.2); HEMOGLOBIN 11.3 GM/dL (10.7-15.3); MCH 34.8 pg (25.7-33.7); MCHC 33.4 g/dl (32.0-36.0); MEAN CELL VOLUME 104.5 fl (80-96); MEAN PLT VOLUME 8.8 fl (7.5-11.1); PLATELET COUNT 193 10^3/uL (134-434); RBC 3.23 M/mm3 (3.60-5.2); RDW 14.6 % (11.6-15.6); WHITE BLOOD COUNT 5.8 K/mm3 (4.0-10.0)
[2024-09-08 09:35] LABS: POTASSIUM 3.7 mmol/L (3.5-5.1)
[2024-09-08 09:39] LABS: BLOOD UREA NITROGEN 14.2 mg/dL (7-18); CALCIUM 8.4 mg/dL (8.5-10.1)
[2024-09-08 09:42] LABS: CREATININE 0.6 mg/dL (0.55-1.3)
[2024-09-09 07:46] LABS: HEMOGLOBIN 11.6 GM/dL (10.7-15.3); MCH 34.6 pg (25.7-33.7); MCHC 33.1 g/dl (32.0-36.0); MEAN CELL VOLUME 104.4 fl (80-96); MEAN PLT VOLUME 8.9 fl (7.5-11.1); PLATELET COUNT 207 10^3/uL (134-434); RBC 3.35 M/mm3 (3.60-5.2); RDW 14.2 % (11.6-15.6); WHITE BLOOD COUNT 5.9 K/mm3 (4.0-10.0)
[2024-09-09 07:58] LABS: POTASSIUM 3.9 mmol/L (3.5-5.1)
[2024-09-09 08:00] LABS: BLOOD UREA NITROGEN 20.6 mg/dL (7-18)
[2024-09-09 08:04] LABS: CREATININE 0.7 mg/dL (0.55-1.3)
[2024-09-09 22:55] VITALS: BMI 36.9
[2024-09-10 08:43] LABS: HEMATOCRIT 35.4 % (32.4-45.2); HEMOGLOBIN 11.8 GM/dL (10.7-15.3); MCH 34.7 pg (25.7-33.7); MCHC 33.4 g/dl (32.0-36.0); MEAN CELL VOLUME 104.1 fl (80-96); MEAN PLT VOLUME 9.3 fl (7.5-11.1); PLATELET COUNT 228 10^3/uL (134-434); RDW 14.4 % (11.6-15.6); WHITE BLOOD COUNT 7.2 K/mm3 (4.0-10.0)
[2024-09-10 09:00] LABS: POTASSIUM 4.3 mmol/L (3.5-5.1)
[2024-09-10 09:12] LABS: BLOOD UREA NITROGEN 23.3 mg/dL (7-18); CALCIUM 8.2 mg/dL (8.5-10.1)
[2024-09-10 09:16] LABS: CREATININE 0.8 mg/dL (0.55-1.3)
[2024-09-10] MEDS: FUROSEMIDE 20 MG TABLET (FP) GT SCH (13:08)
[2024-09-10] MEDS: CALCIUM CARBONATE SUSPENSION - 1250 MG/5 ML ML GT SCH (22:01)
[2024-09-11] MEDS: CALCIUM CARBONATE SUSPENSION - 1250 MG/5 ML ML GT SCH (09:52)
[2024-09-13] MEDS ORDERED: LEVOTHYROXINE NA 100 MCG TABLET (FP) ONE (06:25)
[2024-09-13] MEDS ORDERED: PATIENT'S OWN MEDICATION (NON-FORMULARY) (Midodrine Hcl [Midodrine Hcl] 10 MG Tablet) PO SCH (14:00)
[2024-09-13] MEDS: MIDODRINE HCL 5 MG TABLET GT SCH (16:43)
[2024-09-14 18:29] VITALS: RESP 18
[2024-09-15 03:41] VITALS: PULSE 47; TEMP 97.5
[2024-09-15 08:05] VITALS: BP 109/56
== END 2024-09-15 11:47 | DRG 871 ==
LOC: JER 05:52 → JERBED 08:36 → J6S 10:37
PROVIDERS: ADMIT Internal Medicine; ATTEND Internal Medicine
PROC: 0D20XUZ Change Feeding Device in Upper Intestinal Tract, External Approach (ICD-10-PCS; principal; 2024-09-12)
DX: A41.89 Other specified sepsis (principal); J18.9 Pneumonia, unspecified organism; J96.21 Acute and chronic respiratory failure with hypoxia; J96.22 Acute and chronic respiratory failure with hypercapnia; R53.2 Functional quadriplegia; E87.20 Acidosis, unspecified; N39.0 Urinary tract infection, site not specified; I50.32 Chronic diastolic (congestive) heart failure; E87.0 Hyperosmolality and hypernatremia; Z43.1 Encounter for attention to gastrostomy; G40.909 Epilepsy, unspecified, not intractable, without status epilepticus; R13.19 Other dysphagia; E03.9 Hypothyroidism, unspecified; E78.5 Hyperlipidemia, unspecified; B96.20 Unspecified Escherichia coli [E. coli] as the cause of diseases classified elsewhere; Q90.9 Down syndrome, unspecified; G47.33 Obstructive sleep apnea (adult) (pediatric); Z93.1 Gastrostomy status; Z99.81 Dependence on supplemental oxygen
CPT/HCPCS: 0241U-QW; 36415; 36600; 71045-TC-FY; 74018-TC-FY; 80048; 80053; 80156; 80177; 81003; 82803; 83605; 84484; 85025; 85027; 85610; 85730; 86850; 86900; 86901; 87040; 87086; 87186; 87635; 87899; 93005; 93010; 94640; 94660; 99285-25; J0131; J1644

== ENCOUNTER 2025-03-13 07:25 | Inpatient (IN) | payer OTHER ==
[2025-03-13 08:19] LABS: BG HCT 45.0 % (32.4-45.2); VENOUS BASE EXCESS 7.0 mmol/L (-2-2); VENOUS O2 SATURATION 44.2 % (70-80); VENOUS PH 7.314 (7.310-7.410)
[2025-03-13 08:21] LABS: MCHC 30.4 g/dl (32.2-35.5); MEAN CELL VOLUME 106.2 fl (79.4-94.8); MEAN PLT VOLUME 11.7 fl (9.4-12.3); RDW 14.2 % (12.4-16.4)
[2025-03-13 08:27] LABS: INR 0.97 (0.83-1.09); PROTHROMBIN TIME (PATIENT) 10.7 SEC (9.7-13.0)
[2025-03-13 08:30] LABS: ACTIVATED PTT 26.9 SECONDS (25.2-36.5)
[2025-03-13 08:34] LABS: GLUCOSE,RANDOM 146 mg/dL (74-106); TOT PROT 7.3 g/dl (6.4-8.2)
[2025-03-13 08:37] LABS: ALK PHOS 80 U/L (40-150)
[2025-03-13 08:40] LABS: CREATININE 2.11 mg/dL (0.55-1.3); SGOT/AST 25 U/L (5-34); SGPT/ALT 15 U/L (0-55); VENOUS PCO2 73.0 mmHg (38-52)
[2025-03-13 08:44] LABS: EPI CELLS 8 /uL (0-25.1); HYALINE CASTS 0 /uL (0-3.1); URINE APPEARANCE CLOUDY; URINE BACTERIA >9,000 /uL (0-1359); URINE BILIRUBIN NEGATIVE (NEGATIVE); URINE COLOR YELLOW; URINE GLUCOSE (UA) NEGATIVE (NEGATIVE); URINE KETONE NEGATIVE (NEGATIVE); URINE LEUK ESTERASE 3+ (NEGATIVE); URINE NITRITE NEGATIVE (NEGATIVE); URINE PROTEIN TRACE (NEGATIVE); URINE RBC 17 /uL (0-23.9); URINE UROBILINOGEN 0.2 mg/dL (0.2-1.0); URINE WBC 187 /uL (0-25.8)
[2025-03-13 08:49] LABS: CO2 34 mmol/L (21-32)
[2025-03-13 08:51] LABS: LACTIC ACID 2.4 mmol/L (0.4-2.0)
[2025-03-13 09:01] LABS: BG HCT 39.0 % (32.4-45.2); VENOUS BASE EXCESS 6.4 mmol/L (-2-2); VENOUS O2 SATURATION 50.4 % (70-80); VENOUS PH 7.304 (7.310-7.410)
[2025-03-13] MEDS: SODIUM CHLORIDE 0.9% 500 ML INFUS.BAG IV ONE ×2 (09:06→09:21)
[2025-03-13 09:09] LABS: VENOUS PCO2 72.5 mmHg (38-52)
[2025-03-13] MEDS ORDERED: PIPERACILLIN/TAZOB 4.5 GM 4.5 GM/100 ML BAG IVPB ONE (09:18)
[2025-03-13] MEDS: PIPERACILLIN/TAZOB 4.5 GM 4.5 GM in DEXTROSE 5%-WATER 100 ML IVPB ONE (09:20)
[2025-03-13 09:21] LABS: GLUCOSE,RANDOM 136 mg/dL (74-106)
[2025-03-13 09:22] LABS: CO2 34 mmol/L (21-32)
[2025-03-13 09:27] LABS: CREATININE 2.07 mg/dL (0.55-1.3)
[2025-03-13] MEDS ORDERED: VANCOMYCIN 1 GM PREMIX (F) 1 GM/200 ML BAG ONE (09:31)
[2025-03-13] MEDS: VANCOMYCIN 1,000 MG in DEXTROSE 5%-WATER - 250 ML IVPB ONE (09:41)
[2025-03-13 10:36] LABS: BG HCT 36.0 % (32.4-45.2); VENOUS BASE EXCESS 3.3 mmol/L (-2-2); VENOUS O2 SATURATION 52.4 % (70-80); VENOUS PCO2 65.6 mmHg (38-52); VENOUS PH 7.297 (7.310-7.410)
[2025-03-13] MEDS ORDERED: NOREPINEPHRINE BITARTRATE/D5W 8 MG/250 ML BAG IVPB ONE (10:51)
[2025-03-13] MEDS: NOREPINEPHRINE BITARTRATE 4,000 MCG in DEXTROSE 5%-WATER - 496 ML IV SCH ×2 (11:06→11:48)
[2025-03-13 11:09] LABS: ARTERIAL BLD GAS O2 SATURATION 98.7 % (95-98); ARTERIAL BLOOD GAS BASE EXCESS 2.7 mmol/L (-2-2); ARTERIAL BLOOD GAS PCO2 50.80 mmHg (35-45); ARTERIAL BLOOD GAS PO2 138.4 mmHg (80-100); BG HCT 41.0 % (32.4-45.2)
[2025-03-13 11:11] LABS: LACTIC ACID 2.6 mmol/L (0.4-2.0)
[2025-03-13] MEDS: NOREPINEPHRINE BITARTRATE 8,000 MCG in DEXTROSE 5%-WATER - 492 ML IV SCH (11:20)
[2025-03-13 11:44] LABS: ALLENS TEST POSITIVE
[2025-03-13] MEDS ORDERED: MEROPENEM 1 GM VIAL (RESTRICTED TO ID) IVPB ONE (12:45)
[2025-03-13] MEDS: MEROPENEM 1 GM in DEXTROSE 5%-WATER 100 ML IVPB SCH (12:51)
[2025-03-13] MEDS ORDERED: ALBUTEROL SO4 0.083% IH SOL 2.5 MG/3 ML VIAL.NEB. NEB PRN (12:52)
[2025-03-13] MEDS: MUPIROCIN 2% TOPICAL OINTMENT FOR DECOLONIZATION NS SCH (14:00)
[2025-03-13 15:54] LABS: LACTIC ACID 2.9 mmol/L (0.4-2.0)
[2025-03-13] MEDS: MIDODRINE HCL 5 MG TABLET GT SCH (16:37)
[2025-03-13] MEDS: HEPARIN NA (PORCINE) 5,000 UNITS/ML 1ML VIAL SQ SCH (16:37)
[2025-03-13 20:46] LABS: LACTIC ACID 2.2 mmol/L (0.4-2.0)
[2025-03-13] MEDS ORDERED: LACTATED RINGERS SOLUTION 1000 ML INFUS.BAG IV ONE (21:15)
[2025-03-13] MEDS: carBAMazepine 100 MG/5 ML UNIT-DOSE CUP GT SCH (21:40)
[2025-03-13] MEDS: levETIRAcetam 500 MG/5 ML ORAL SOLUTION (UNIT-DOSE CUPS) GT SCH (21:41)
[2025-03-13] MEDS: ROSUVASTATIN CA 10 MG TABLET GT SCH (21:41)
[2025-03-13] MEDS: CHLORHEXIDINE GLUCONATE 4% CLEANSER FOR DECOLONIZATION TP SCH (22:23)
[2025-03-14] MEDS: LEVOTHYROXINE 100 MCG, LEVOTHYROXINE 75 MCG GT SCH (06:23)
[2025-03-14 08:25] LABS: MCHC 30.5 g/dl (32.2-35.5); MEAN CELL VOLUME 107.2 fl (79.4-94.8); MEAN PLT VOLUME 11.9 fl (9.4-12.3); RDW 14.2 % (12.4-16.4)
[2025-03-14 08:43] LABS: GLUCOSE,RANDOM 111.0 mg/dL (74-106)
[2025-03-14 08:44] LABS: TOT PROT 7.0 g/dl (6.4-8.2)
[2025-03-14 08:45] LABS: CO2 34.0 mmol/L (21-32)
[2025-03-14 08:49] LABS: SGOT/AST 20.0 U/L (5-34); SGPT/ALT 12.0 U/L (0-55)
[2025-03-14 08:50] LABS: CREATININE 1.82 mg/dL (0.55-1.3)
[2025-03-14 08:52] LABS: ALK PHOS 66.0 U/L (40-150)
[2025-03-14] MEDS: ASPIRIN 81 MG CHEWABLE TABLETS GT SCH (09:04)
[2025-03-14] MEDS ORDERED: PATIENT'S OWN MEDICATION (NON-FORMULARY) (Levothyroxine Sodium [Levothyroxine Sodium] 175 GT SCH (10:00)
[2025-03-14] MEDS: LACTATED RINGERS SOLUTION 1,000 ML/1,000 ML INFUS.BAG IV STA (12:43)
[2025-03-14] MEDS: POTASSIUM CHLORIDE ORAL LIQUID 20 MEQ/15 ML NGT ONE ×3 (12:43→20:50)
[2025-03-14] MEDS: LACTATED RINGERS SOLUTION 1,000 ML/1,000 ML INFUS.BAG IV SCH (12:43)
[2025-03-14] MEDS: ALBUTEROL SO4 0.083% IH SOL 2.5 MG/3 ML VIAL.NEB. NEB SCH (20:40)
[2025-03-14] MEDS: IPRATROPIUM BR 0.02% 0.5 MG/2.5 ML VIAL.NEB. NEB SCH (20:46)
[2025-03-14] MEDS: MEROPENEM 1 GM in DEXTROSE 5%-WATER 100 ML IVPB SCH (20:49)
[2025-03-14] MEDS: KCL 10 MEQ IVPB 10 MEQ/100 ML INFUS.BAG IVPB SCH (20:50)
[2025-03-14] MEDS: FUROSEMIDE 40 MG/4 ML INJECTABLE VIAL IVPUSH ONE (20:54)
[2025-03-14] MEDS: METOLAZONE 5 MG TABLET NR ONE (20:54)
[2025-03-14] MEDS: ACETAMINOPHEN 1000 MG/100 ML BAG IVPB PRN (23:26)
[2025-03-15 07:04] LABS: MCHC 30.5 g/dl (32.2-35.5); MEAN CELL VOLUME 105.2 fl (79.4-94.8); MEAN PLT VOLUME 11.8 fl (9.4-12.3); RDW 14.0 % (12.4-16.4)
[2025-03-15] MEDS ORDERED: BISACODYL 10 MG SUPP.RECT RC PRN ×2 (07:30→15:51)
[2025-03-15 07:33] LABS: GLUCOSE,RANDOM 79.0 mg/dL (74-106); TOT PROT 7.5 g/dl (6.4-8.2)
[2025-03-15 07:34] LABS: CO2 31.0 mmol/L (21-32)
[2025-03-15 07:36] LABS: ALK PHOS 72.0 U/L (40-150)
[2025-03-15 07:38] LABS: SGOT/AST 21.0 U/L (5-34); SGPT/ALT 13.0 U/L (0-55)
[2025-03-15 07:39] LABS: CREATININE 1.72 mg/dL (0.55-1.3)
[2025-03-15] MEDS: NAPH,MB-DB/K PH,MBDB POWDER PACKET GT ONE (08:40)
[2025-03-15] MEDS: FUROSEMIDE 40 MG/4 ML INJECTABLE VIAL IVPUSH SCH (08:41)
[2025-03-15] MEDS: SENNOSIDES 8.8 MG/5 ML SYRUP GT SCH ×2 (08:41→22:08)
[2025-03-15] MEDS: MEROPENEM 1 GM in DEXTROSE 5%-WATER 100 ML IVPB SCH (11:02)
[2025-03-15] MEDS ORDERED: ACETAMINOPHEN 1000 MG/100 ML BAG IVPB PRN (15:51)
[2025-03-15] MEDS: HEPARIN NA (PORCINE) 5,000 UNITS/ML 1ML VIAL SQ SCH (22:06)
[2025-03-15] MEDS: MIDODRINE HCL 5 MG TABLET GT SCH (22:07)
[2025-03-15] MEDS: ROSUVASTATIN CA 10 MG TABLET GT SCH (22:07)
[2025-03-15] MEDS: levETIRAcetam 500 MG/5 ML ORAL SOLUTION (UNIT-DOSE CUPS) GT SCH (22:08)
[2025-03-15] MEDS: carBAMazepine 100 MG/5 ML UNIT-DOSE CUP GT SCH (22:39)
[2025-03-16] MEDS: MEROPENEM 1 GM in DEXTROSE 5%-WATER 100 ML IVPB SCH (00:26)
[2025-03-16] MEDS: LEVOTHYROXINE 100 MCG, LEVOTHYROXINE 75 MCG GT SCH (06:02)
[2025-03-16 06:36] LABS: MCHC 31.9 g/dl (32.2-35.5); MEAN CELL VOLUME 102.0 fl (79.4-94.8); MEAN PLT VOLUME 12.2 fl (9.4-12.3); RDW 13.8 % (12.4-16.4)
[2025-03-16 06:56] LABS: GLUCOSE,RANDOM 108.0 mg/dL (74-106)
[2025-03-16 06:57] LABS: TOT PROT 7.7 g/dl (6.4-8.2)
[2025-03-16 07:02] LABS: CREATININE 1.46 mg/dL (0.55-1.3); SGOT/AST 50.0 U/L (5-34); SGPT/ALT 17.0 U/L (0-55)
[2025-03-16 07:07] LABS: ALK PHOS 84.0 U/L (40-150); CO2 34.0 mmol/L (21-32)
[2025-03-16] MEDS: NAPH,MB-DB/K PH,MBDB POWDER PACKET GT ONE (08:26)
[2025-03-16] MEDS: ASPIRIN 81 MG CHEWABLE TABLETS GT SCH (09:48)
[2025-03-16] MEDS: FUROSEMIDE 40 MG/4 ML INJECTABLE VIAL IVPUSH SCH (09:48)
[2025-03-16] MEDS: NAPH,MB-DB/K PH,MBDB POWDER PACKET PO SCH (09:49)
[2025-03-16] MEDS ORDERED: BISACODYL 10 MG SUPP.RECT RC PRN (16:21)
[2025-03-17 08:07] LABS: MCHC 32.0 g/dl (32.2-35.5); MEAN CELL VOLUME 100.8 fl (79.4-94.8); MEAN PLT VOLUME 12.1 fl (9.4-12.3); RDW 13.6 % (12.4-16.4)
[2025-03-17 08:26] LABS: GLUCOSE,RANDOM 115 mg/dL (74-106)
[2025-03-17 08:27] LABS: TOT PROT 7.2 g/dl (6.4-8.2)
[2025-03-17 08:28] LABS: CO2 38 mmol/L (21-32)
[2025-03-17 08:32] LABS: SGOT/AST 20 U/L (5-34); SGPT/ALT 10 U/L (0-55)
[2025-03-17 08:33] LABS: CREATININE 1.37 mg/dL (0.55-1.3)
[2025-03-17 09:11] LABS: ALK PHOS 91 U/L (40-150)
[2025-03-17] MEDS ORDERED: POTASSIUM CHLORIDE ORAL LIQUID 20 MEQ/15 ML GT SCH (10:00)
[2025-03-17] MEDS: POTASSIUM CHLORIDE ORAL LIQUID 20 MEQ/15 ML GT SCH (10:30)
[2025-03-17] MEDS: KCL 10 MEQ IVPB 10 MEQ/100 ML INFUS.BAG IVPB SCH (15:17)
[2025-03-18 08:25] LABS: MCHC 31.7 g/dl (32.2-35.5); MEAN CELL VOLUME 101.8 fl (79.4-94.8); MEAN PLT VOLUME 11.7 fl (9.4-12.3); RDW 14.0 % (12.4-16.4)
[2025-03-18 08:43] LABS: GLUCOSE,RANDOM 104.0 mg/dL (74-106); TOT PROT 7.4 g/dl (6.4-8.2)
[2025-03-18 08:44] LABS: CO2 35.0 mmol/L (21-32)
[2025-03-18 08:46] LABS: ALK PHOS 78.0 U/L (40-150)
[2025-03-18 08:48] LABS: SGOT/AST 31.0 U/L (5-34); SGPT/ALT 14.0 U/L (0-55)
[2025-03-18 08:49] LABS: CREATININE 1.35 mg/dL (0.55-1.3)
[2025-03-18] MEDS: NAPH,MB-DB/K PH,MBDB POWDER PACKET PO SCH (13:05)
[2025-03-18 15:17] VITALS: BMI 40.8
[2025-03-19 09:08] LABS: ABSOLUTE IMMATURE GRANULOCYTES 0.35 x10^3/uL (0.0-0.031); BASOPHILS # 0.12 x10^3/uL (0.01-0.08); EOSINOPHIL % 0.0 % (0.7-5.8); EOSINOPHILS # 0.00 x10^3/uL (0.04-0.36); MCHC 31.0 g/dl (32.2-35.5); MEAN CELL VOLUME 104.1 fl (79.4-94.8); MEAN PLT VOLUME 11.9 fl (9.4-12.3); MONOCYTE # 0.64 x10^3/uL (0.24-0.86); MONOCYTE % 7.2 % (4.7-12.5); RDW 14.1 % (12.4-16.4)
[2025-03-19 09:36] LABS: TOT PROT 7.1 g/dl (6.4-8.2)
[2025-03-19 09:37] LABS: CO2 37.0 mmol/L (21-32); GLUCOSE,RANDOM 119.0 mg/dL (74-106)
[2025-03-19 09:42] LABS: CREATININE 1.27 mg/dL (0.55-1.3); SGOT/AST 30.0 U/L (5-34); SGPT/ALT 20.0 U/L (0-55)
[2025-03-19 09:51] LABS: ALK PHOS 91.0 U/L (40-150)
[2025-03-19] MEDS: POTASSIUM CHLORIDE ORAL LIQUID 20 MEQ/15 ML PO SCH (10:46)
[2025-03-19] MEDS: BISACODYL 10 MG SUPP.RECT PR PRN (21:56)
[2025-03-20 08:26] LABS: MCHC 31.4 g/dl (32.2-35.5); MEAN CELL VOLUME 103.0 fl (79.4-94.8); MEAN PLT VOLUME 12.4 fl (9.4-12.3); RDW 14.0 % (12.4-16.4)
[2025-03-20 08:44] LABS: GLUCOSE,RANDOM 93.0 mg/dL (74-106)
[2025-03-20 08:45] LABS: TOT PROT 7.5 g/dl (6.4-8.2)
[2025-03-20 08:46] LABS: CO2 34.0 mmol/L (21-32)
[2025-03-20 08:50] LABS: CREATININE 1.22 mg/dL (0.55-1.3); SGOT/AST 39.0 U/L (5-34); SGPT/ALT 29.0 U/L (0-55)
[2025-03-20 09:01] LABS: ALK PHOS 116.0 U/L (40-150)
[2025-03-20] MEDS: MIDODRINE HCL 5 MG TABLET GT ONE (15:54)
[2025-03-20 16:11] VITALS: RESP 18
[2025-03-20] MEDS: MIDODRINE HCL 5 MG TABLET GT SCH (17:42)
[2025-03-21 08:49] VITALS: TEMP 98.8
[2025-03-21 11:22] VITALS: BP 102/43; PULSE 59
== END 2025-03-21 17:16 | DRG 871 ==
LOC: JER 07:25 → JERBED 12:23 → JICU 13:38 → J6W TELE 03-15 15:42
PROVIDERS: ADMIT Internal Medicine; ATTEND Internal Medicine
PROC: 05HY33Z Insertion of Infusion Device into Upper Vein, Percutaneous Approach (ICD-10-PCS; principal; 2025-03-20)
DX: A41.9 Sepsis, unspecified organism (principal); J69.0 Pneumonitis due to inhalation of food and vomit; R53.2 Functional quadriplegia; R65.21 Severe sepsis with septic shock; J96.01 Acute respiratory failure with hypoxia; J96.02 Acute respiratory failure with hypercapnia; N17.9 Acute kidney failure, unspecified; I24.89 Other forms of acute ischemic heart disease; I50.32 Chronic diastolic (congestive) heart failure; E87.4 Mixed disorder of acid-base balance; N39.0 Urinary tract infection, site not specified; Z16.12 Extended spectrum beta lactamase (ESBL) resistance; E87.20 Acidosis, unspecified; Q90.9 Down syndrome, unspecified; G40.909 Epilepsy, unspecified, not intractable, without status epilepticus; Z93.1 Gastrostomy status; E03.9 Hypothyroidism, unspecified; E55.9 Vitamin D deficiency, unspecified; B96.20 Unspecified Escherichia coli [E. coli] as the cause of diseases classified elsewhere; E87.6 Hypokalemia; E78.5 Hyperlipidemia, unspecified
CPT/HCPCS: 36415; 36600; 71045-TC-FY; 76775-TC; 80048; 80053; 81003; 82607; 82747; 82803; 82962; 83605; 83735; 84100; 84484; 85014; 85025; 85027; 85610; 85730; 87040; 87086; 87481; 87637-QW; 93005; 93010; 94640; 99285-25